=== PATIENT | male | born 1975 | race Two or more races ===

== ENCOUNTER 2018-09-13 17:48 | Inpatient (IN) | payer SELFPAY ==
[~2018-09-13] VITALS: Ht 172.7 cm; Wt 69.8 kg
[2018-09-13] MEDS ORDERED: InsuLIN REG 1unit/0.01ml Soln (100units/ml) SC ONE (19:15)
[2018-09-13] MEDS ORDERED: SODIUM CHLORIDE 0.9% 1,000 ML IV ONE (19:45)
[2018-09-13 20:27] LABS: Basophils # (auto) 0 uL; Basophils % (auto) 0.4 % (0.0-2.0); Eosinophils # (auto) 0 uL; Eosinophils % (auto) 0.6 % (0.0-7.0); Hematocrit 39.1 % (41.0-53.0); Hemoglobin 13.5 g/dL (13.5-17.5); Lymphocytes # (auto) 2.1 uL; Lymphocytes % (auto) 34.2 % (10.0-50.0); Mean Corpuscular Hemoglobin 30.7 pg (28.0-32.0); Mean Corpuscular Hgb Conc. 34.6 g/dL (32.0-36.0); Mean Corpuscular Volume 88.9 fL (80.0-100.0); Monocytes # (auto) 0.7 uL; Monocytes % (auto) 11.8 % (0.0-12.0); Neutrophils # (auto) 3.2 uL; Platelet Count (auto) 303 10^3/uL (140-450); Red Cell Distribution Width 12.7 % (11.8-14.3)
[2018-09-13 20:44] LABS: INR 0.95 (0.9-1.15); Partial Thromboplastin Time 30.9 sec (23.64-32.05)
[2018-09-13 20:58] LABS: Albumin 3.2 g/dL (3.4-5.0); BUN/Creatinine Ratio 12.6; Calcium 7.9 mg/dL (8.5-10.1); Potassium 3.4 mmol/L (3.5-5.1)
[2018-09-13 21:01] LABS: Bilirubin, Total 0.7 mg/dL (0.2-1.0); Total Protein 6.9 g/dL (6.4-8.2)
[2018-09-13 21:18] LABS: CRP High Sensitivity 4.96 mg/dL (< 0.3)
[2018-09-13] MEDS ORDERED: POTASSIUM CHL 20 Meq TABLET PO ONE (22:00)
[2018-09-13] MEDS ORDERED: ACETAMINOPHEN 325 MG TAB PO PRN (22:00)
[2018-09-13] MEDS ORDERED: cloNIDine HCL 0.1 MG TAB PO PRN (22:00)
[2018-09-13] MEDS ORDERED: DEXTROSE (50%) 50ML SYRG IV PRN (22:00)
[2018-09-13] MEDS ORDERED: ONDANSETRON HCL 4 MG/2 ML VIAL IV PRN (22:00)
[2018-09-13] MEDS ORDERED: cefTRIAXone 1GM/50ML D5W 50 ML IV ONE (22:00)
[2018-09-13 23:15] VITALS: BP 133/80
--- NOTE | 2018-09-13 23:15 | NUR ---
MS admit from [facility] admitted to MS floor. Patient oriented to Penny Gregory, primary RN, unit, room, bed, and unit policies regarding patient care and visiting hours. Patient weighed by bed scale and encouraged to call if they need something. All questions and concerns addressed, patient verbalized understanding. Patient is awake and alert x4, ambulatory independent. Patient reports left foot pain, wound to left great toe noted. Patient reports noticing wound 6 weeks ago with worsening pain starting yesterday. Patient states he is homeless and does not have a PCP or take any prescription medications.
[2018-09-14] MEDS: METOPROLOL TARTRATE 25 MG TAB PO SCH ×3 (00:06→21:40)
[2018-09-14] MEDS: FAMOTIDINE 20 MG TAB PO SCH ×3 (00:08→21:38)
[2018-09-14] MEDS: HYDROcodone-ACET 5/325MG TAB PO PRN ×3 (00:08→20:29)
[2018-09-14] MEDS: ACCU-CHEK COMFORT CURVE STRIP VI SCH ×6 (00:09→20:50)
[2018-09-14] MEDS: CLINDAMYCIN 600MG IV 50 ML IV SCH ×4 (00:09→21:38)
--- NOTE | 2018-09-14 00:40 | NUR ---
WOUND CARE PHOTOS TAKEN AT THIS TIME PATIENT WITH WOUND TO LEFT GREAT TOE, PURULENT DRAINAGE NOTED, NO ODOR. CLEANSED WOUND WITH WOUND CLEANSER, PATTED DRY WITH STERILE GAUZE. OPTIFOAM DRESSING PLACED ON LEFT GREAT TOE. PATIENT TOLERATED WELL. WOUND CARE ORDER PLACED AND FORM PLACED IN WOUND CARE BOX.
[2018-09-14] MEDS: InsuLIN REG 1unit/0.01ml Soln (100units/ml) SC SCH ×6 (04:12→20:49)
[2018-09-14 05:39] VITALS: BP 117/69
[2018-09-14 06:15] LABS: Basophils # (auto) 0 uL; Basophils % (auto) 0.5 % (0.0-2.0); Eosinophils # (auto) 0.1 uL; Eosinophils % (auto) 1.7 % (0.0-7.0); Hemoglobin 13.1 g/dL (13.5-17.5); Lymphocytes # (auto) 2.6 uL; Lymphocytes % (auto) 42.1 % (10.0-50.0); Mean Corpuscular Hemoglobin 30.7 pg (28.0-32.0); Mean Corpuscular Hgb Conc. 34.4 g/dL (32.0-36.0); Mean Corpuscular Volume 89.1 fL (80.0-100.0); Monocytes # (auto) 0.6 uL; Neutrophils # (auto) 2.8 uL; Neutrophils % (auto) 45.7 % (37.0-80.0); Platelet Count (auto) 270 10^3/uL (140-450); Red Blood Cells 4.27 10^6/uL (4.5-5.90); Red Cell Distribution Width 12.5 % (11.8-14.3); White Blood Cell 6.2 10^3/uL (4.4-10.8)
[2018-09-14 06:23] LABS: BUN/Creatinine Ratio 14.7; Potassium 3.8 mmol/L (3.5-5.1)
--- NOTE | 2018-09-14 08:00 | NUR ---
Patient in bed, asleep, no acute distress noted.
[2018-09-14 09:00] VITALS: BP 126/76
[2018-09-14] MEDS: cefTRIAXone 1GM/50ML D5W 50 ML IV SCH (09:06)
--- NOTE | 2018-09-14 11:00 | NUR ---
WOUND CARE NOTE: IN TO SEE PATIENT AT THIS TIME PER WOUND CARE CONSULT REQUEST. PATIENT NOTED TO HAVE WOUND TO LEFT # 1 TOE UPON ADMIT. WOUND PHOTO TAKEN AT THAT TIME BY BEDSIDE NURSE FOR REFERENCE. PATIENT ADMITTED TO [facility] WITH DIAGNOSIS OF LEFT FOOT OSTEOMYELITIS. PATIENT NOTED TO HAVE A DFU ULCER MEASURING 2 X 0.7 X 1 CM TO LEFT # 1 TOE. WOUND IS DRAINING LIGHT AMOUNT OF PURULENT DRAINAGE. ENTIRE TOE IS DARK RED. PATIENT HAS NEUROPATHY TO HIS BILATERAL FEET, NO PAIN NOTED UPON PALPATION. NEW WOUND PHOTO TAKEN AT THIS TIME FOR REFERENCE. WOUND CULTURE WAS ALREADY TAKEN, SENT TO LAB FOR PROCESSING, PENDING RESULTS. PODIATRY CONSULT IS PENDING. CLEANSED WOUND WITH WOUND CLEANSER, PATTED DRY WITH STERILE GAUZE. APPLIED SILVASORB HYDROGEL INTO OPEN WOUND. COVERED WITH OPTIFOAM GENTLE AG. WRAPPED LEFT FOOT WITH KERLIX, SECURED WITH TAPE/STOCKINETTE. RECOMMEND: ELEVATION OF LEFT FOOT UP ONTO PILLOWS, DAILY/PRN DRESSING CHANGE TO LEFT FOOT WOUND, DIETARY CONSULT, SKIN/WOUND CARE PLAN, CONTINUED MONITORING BY WOUND CARE TEAM. Addendum: 09/14/18 at 1715 by Sandy Duran RN Amended: Links added.
[2018-09-14 13:00] VITALS: BP 122/78
--- NOTE | 2018-09-14 13:22 | NUR ---
Dr. Penn at bedside. Patient said he uses Meth, the last time was four days ago. MD made aware Dr. White will not see the patient for Podiatry Consult. Dr. Penn ordered to put another Podiatry Consult with Dr. Lockhart or Dr. Lockett.
--- NOTE | 2018-09-14 16:00 | NUR ---
Patient is ambulatory, limping noted on the left foot noted, covered with wound dressing with stockinette on.
--- NOTE | 2018-09-14 16:40 | NUR ---
Urine specimen sent to Laboratory.
[2018-09-14 17:00] VITALS: BP 129/78
[2018-09-14 17:33] LABS: Alcohol, Urine < 3.0 mg/dL (0-5); Amphetamine Screen, Urine POSITIVE (NEGATIVE); Barbiturate Scree,Urine NEGATIVE (NEGATIVE); Benzodiazephine Screen, Urine NEGATIVE (NEGATIVE); Cannabinoid Screen, Urine POSITIVE (NEGATIVE); Cocaine Screen, Urine NEGATIVE (NEGATIVE); Opiate Scree,Urine NEGATIVE (NEGATIVE); Phencyclidine Screen, Urine NEGATIVE (NEGATIVE)
--- NOTE | 2018-09-14 19:00 | NUR ---
Opening Shift Note Report received from day shift RN. Assumed care of patient. Patient sitting in bed awake and alert x4. No S/S of distress/SOB noted. Patient states having sharp pain to left foot and leg 9/10. Will medicate as ordered. Dressing to left foot clean, dry, and intact. Instructed on POC and to call for assist PRN, will continue to monitor for changes Q1hr and PRN.
[2018-09-14 22:00] VITALS: BP 136/77
[2018-09-15] MEDS: ACCU-CHEK COMFORT CURVE STRIP VI SCH ×6 (00:04→20:00)
[2018-09-15] MEDS: InsuLIN REG 1unit/0.01ml Soln (100units/ml) SC SCH ×6 (04:00→20:56)
[2018-09-15] MEDS: CLINDAMYCIN 600MG IV 50 ML IV SCH ×3 (05:10→21:00)
[2018-09-15 05:37] VITALS: BP 114/80
[2018-09-15 06:20] LABS: Calcium 8.8 mg/dL (8.5-10.1); Potassium 4.2 mmol/L (3.5-5.1)
[2018-09-15 06:26] LABS: BUN/Creatinine Ratio 15.7
[2018-09-15 08:10] VITALS: BP 136/87
[2018-09-15] MEDS: cefTRIAXone 1GM/50ML D5W 50 ML IV SCH (08:37)
[2018-09-15] MEDS: HYDROcodone-ACET 5/325MG TAB PO PRN ×3 (08:49→21:00)
--- NOTE | 2018-09-15 08:49 | NUR ---
Patient stated his left foot hurts, pain level at 7/10 at this time. [place] 5/325 PO given as ordered.
--- NOTE | 2018-09-15 10:07 | NUR ---
Dr. Penn came over to see the patient. Patient has pending Podiatry Consult.
--- NOTE | 2018-09-15 10:09 | NUR ---
Called MRI. Phone on voicemail. Left a message.
[2018-09-15] MEDS: FAMOTIDINE 20 MG TAB PO SCH ×2 (10:35→20:59)
[2018-09-15] MEDS: METOPROLOL TARTRATE 25 MG TAB PO SCH (10:35)
--- NOTE | 2018-09-15 10:38 | NUR ---
assessment Patient is a 43 year old male who is homeless and has no insurance. Patient has been assessed by John Paul Haney of [facility] and patients medi-cecile is pending. Patient is homeless in [place]. Patient has been admitted for osteomyelitis. Patient is open to homeless [facility] in [place]. Patients post discharge needs to be determined prior to discharge. Addendum: 09/15/18 at 1641 by Ledy BURNETTE Amended: Links added.
[2018-09-15] MEDS ORDERED: hydrALAZINE HCL 20 MG/ML VL IV PRN (11:15)
--- NOTE | 2018-09-15 12:03 | NUR ---
embryology teacher came over. Patient requested if he can finish eating lunch first. embryology teacher to come back.
[2018-09-15 12:43] VITALS: BP 128/81
--- NOTE | 2018-09-15 12:43 | NUR ---
NUTRITION CONSULT/ASSESSMENT NOTES Please refer to link notes of nutrition screen form filed under the intervention section of the plan of care for further details. Est. Needs: 1650 kcal to 2000 kcal (25-30 kcal/kgBW), 67 gms to 88 gms pro (1.0-1.3 gms/kgBW for wound healing). Will continue to monitor pertinent labs and reassess nutrient need prn Thank you for this consult. Addendum: 09/15/18 at [address] Amended: Links added.
--- NOTE | 2018-09-15 12:43 | NUR ---
Called Farheen Wagner to see if we can get KARAN for a assistant professor of psychology to see pt , had to leave message
--- NOTE | 2018-09-15 12:53 | NUR ---
Called [place] that patient is ready for MRI. tobacco prizer is coming over as per [place].
--- NOTE | 2018-09-15 12:54 | NUR ---
Received referral to see pt. Pt is homeless and is unable to get to [facility], prescriptions and no transportation. Gave pt resources from the [facility]. Patient is willing to go to homeless fpc on dc. Will call fpc on [place] to see bed availability. Patient has been offered clothes and will be provided a sack lunch on dc. Patient signed homeless waiver and it has been placed in chart.
--- NOTE | 2018-09-15 12:54 | NUR ---
Informed the patient cooperage shop supervisor is coming over to pick him up for MRI.
--- NOTE | 2018-09-15 13:45 | NUR ---
Per Dr. Pavel Fernandez to see pt either today or tomorrow
--- NOTE | 2018-09-15 15:07 | NUR ---
Patient stated his left foot hurts. [place] 5/325 PO given for pain as ordered.
[2018-09-15 16:46] VITALS: BP 149/86
--- NOTE | 2018-09-15 19:30 | NUR ---
Opening Shift Note Assumed care of patient, awake and alert. No S/S of distress/SOB. Updated on POC and to call for assist PRN, patient verbalized understanding, call light within reach, will continue to monitor for changes Q1hr and PRN.
[2018-09-15] MEDS: ASCORBIC ACID 500 MG TAB PO SCH (20:59)
[2018-09-15 21:42] VITALS: BP 120/79
[2018-09-16 04:00] VITALS: BP 116/67
[2018-09-16] MEDS: ACCU-CHEK COMFORT CURVE STRIP VI SCH ×6 (04:00→22:26)
[2018-09-16] MEDS: InsuLIN REG 1unit/0.01ml Soln (100units/ml) SC SCH ×6 (04:00→22:30)
[2018-09-16] MEDS: CLINDAMYCIN 600MG IV 50 ML IV SCH ×3 (05:46→22:26)
[2018-09-16] MEDS: cefTRIAXone 1GM/50ML D5W 50 ML IV SCH (08:40)
[2018-09-16] MEDS: HYDROcodone-ACET 5/325MG TAB PO PRN ×2 (08:41→17:55)
[2018-09-16] MEDS: ASCORBIC ACID 500 MG TAB PO SCH ×2 (09:24→22:26)
[2018-09-16] MEDS: MULTIPLE VITAMINS W/ MINERALS TAB PO SCH (09:24)
[2018-09-16] MEDS: FAMOTIDINE 20 MG TAB PO SCH ×2 (09:25→22:26)
[2018-09-16] MEDS: LISINOPRIL 20 MG TAB PO SCH (09:25)
[2018-09-16 09:47] VITALS: BP 115/72
--- NOTE | 2018-09-16 10:49 | NUR ---
ASKED BUTCHER APPRENTICE TO RECALL PODIATRY CONSULT. ASSISTANT PROFESSOR OF PSYCHOLOGY REPORTS SHE WILL CALL IN, WILL CONTINUE TO MONITOR.
--- NOTE | 2018-09-16 12:30 | NUR ---
DOOR ASSEMBLER REPORTS DR ROBLES'S OFFICE IS AT LUNCH AND SHE WILL RECALL.
[2018-09-16 12:43] VITALS: BP 117/79
[2018-09-16] MEDS ORDERED: DEXTROSE (50%) 50ML SYRG IV PRN (12:45)
--- NOTE | 2018-09-16 18:00 | NUR ---
PT REPORTED HIS IV WAS HURTING. ASSESSED IV SITE, NO ERYTHEMA NOTED, BUT SWELLING NOTED. IV DC'D, PRESSURE DRESSING APPLIED. NEW IV RFA 22 G INSERTED USING STERILE TECHNIQUE. PT TOLERATED PROCEDURE WELL, WILL CONTINUE TO MONITOR.
--- NOTE | 2018-09-16 20:30 | NUR ---
TALKED TO DR ORTA NEW ORDERS FOR WEDNESDAY
[2018-09-16 22:03] VITALS: BP 177/113
[2018-09-16 22:08] VITALS: BP 131/74
[2018-09-16] MEDS: TEMAZEPAM 15 MG CAP PO PRN (22:27)
--- NOTE | 2018-09-17 00:41 | NUR ---
lambert report to heaven clay
--- NOTE | 2018-09-17 00:47 | NUR ---
Assumed care of patient. Patient laying in bed sleeping no s/s of distress or SOB noted.
[2018-09-17 05:07] VITALS: BP 105/66
[2018-09-17] MEDS: CLINDAMYCIN 600MG IV 50 ML IV SCH ×3 (05:30→21:26)
[2018-09-17] MEDS: InsuLIN REG 1unit/0.01ml Soln (100units/ml) SC SCH ×4 (06:32→21:28)
[2018-09-17] MEDS: ACCU-CHEK COMFORT CURVE STRIP VI SCH ×4 (06:33→21:26)
--- NOTE | 2018-09-17 07:36 | NUR ---
CLOSING NOTE ENDORSED CARE TO DAY SHIFT RN. PATIENT SITTING IN BED NO S/S OF DISTRESS OR SOB NOTED
--- NOTE | 2018-09-17 08:30 | NUR ---
PT AMBULATING IN HALLWAYS, EFFORTLESS BREATHING ON ROOM AIR. STEADY GAIT NOTED.
[2018-09-17 08:41] VITALS: BP 116/80
[2018-09-17] MEDS: ASCORBIC ACID 500 MG TAB PO SCH ×2 (10:11→21:26)
[2018-09-17] MEDS: MULTIPLE VITAMINS W/ MINERALS TAB PO SCH (10:11)
[2018-09-17] MEDS: HYDROcodone-ACET 5/325MG TAB PO PRN ×3 (10:11→21:27)
[2018-09-17] MEDS: FAMOTIDINE 20 MG TAB PO SCH ×2 (10:11→21:26)
[2018-09-17] MEDS: LISINOPRIL 20 MG TAB PO SCH (10:12)
[2018-09-17 13:00] VITALS: BP 135/89
[2018-09-17] MEDS ORDERED: LACTULOSE 20Gm/30ML SOLN PO PRN (15:15)
[2018-09-17 17:00] VITALS: BP 99/67
[2018-09-17] MEDS: DOCUSATE SOD 100 MG CAP PO SCH (21:26)
[2018-09-17 21:38] VITALS: BP 118/73
[2018-09-18] MEDS: TEMAZEPAM 15 MG CAP PO PRN ×2 (00:08→20:47)
--- NOTE | 2018-09-18 04:37 | NUR ---
RECEIVED REPORT Received report from Yamilka BLOOM
--- NOTE | 2018-09-18 04:37 | NUR ---
GAVE REPORT TO KIKO BLOOM
[2018-09-18 05:08] VITALS: BP_SYST 100; BP_SYST 154; BP_DIAS 62; BP_DIAS 90
[2018-09-18] MEDS: CLINDAMYCIN 600MG IV 50 ML IV SCH ×3 (05:47→20:47)
[2018-09-18] MEDS: ACCU-CHEK COMFORT CURVE STRIP VI SCH ×4 (06:04→21:32)
[2018-09-18] MEDS: InsuLIN REG 1unit/0.01ml Soln (100units/ml) SC SCH ×4 (06:04→21:33)
--- NOTE | 2018-09-18 07:48 | NUR ---
OPENING SHIFT NOTE ASSUMED CARE OF PATIENT. PATIENT AWAKE AND ALERT SITTING UP IN CHAIR AT BEDSIDE. NO S/S OF DISTRESS OR SOB NOTED. REVIEWED POC AND INSTRUCTED TO CALL FOR ASSIST NEEDED. CONTINUING TO MONITOR.
[2018-09-18 09:00] VITALS: BP_SYST 110; BP_SYST 114; BP_DIAS 68; BP_DIAS 69
[2018-09-18] MEDS: ASCORBIC ACID 500 MG TAB PO SCH ×2 (09:36→20:47)
[2018-09-18] MEDS: DOCUSATE SOD 100 MG CAP PO SCH ×2 (09:36→20:46)
[2018-09-18] MEDS: MULTIPLE VITAMINS W/ MINERALS TAB PO SCH (09:36)
[2018-09-18] MEDS: FAMOTIDINE 20 MG TAB PO SCH ×2 (09:37→20:46)
[2018-09-18] MEDS: LISINOPRIL 20 MG TAB PO SCH (09:37)
[2018-09-18] MEDS: HYDROcodone-ACET 5/325MG TAB PO PRN ×2 (09:41→15:00)
--- NOTE | 2018-09-18 11:28 | NUR ---
Nutrition Follow-up Notes Wt.: 71.1 kg Pt was sleeping with no family by bedside. per records pt with DFU to have sx tomorrow. pt with no distress noted per nursing. pt is currently on CCHO 60 gm/meal diet with adequate PO of > 75% x6 per RN doc Est. Needs: 1650 kcal to 2000 kcal (25-30 kcal/kgBW), 67 gms to 88 gms pro (1.0-1.3 gms/kgBW for wound healing). Will continue to monitor pertinent labs and reassess nutrient need prn Labs: No new labs today 09/15: GLU 116 H, rest lab wnl Skin: Matthew scale 17, mod risk, DFU per RN doc. refer to WC notes for details GI: Pt had 1 BM today per senior analyst developer. PES: Altered nutrition related lab values r/t current/chronic medical condition aeb hyperglycemia, elev. HbA1c, and mild hypoalbuminemia Will continue to monitor PO intake, skin status, pertinent labs and weight trend. F/u in 3-5 days. Rec.: 1.) If Albumin level continues trending down, consider Prostat 1 pkt BID. 2.) Consider daily MVI with minerals and Asc acid 500 mgs BID. 3.) Continue close supervision meals 4.) If pt's PO intake inadequate (<75%), consider Glucerna Shakes 1 carton BID 5.) Refer to CDE/RD for further nutrition education and weight monitoring upon discharged. 6.) Continue current plan of care
[2018-09-18 12:28] VITALS: BP 116/73
--- NOTE | 2018-09-18 15:20 | NUR ---
CONSENTS SPOKE WITH PATIENT REGARDING CONSENTS FOR PROCEDURE. AT THIS TIME PATIENT STATES HE HAS QUESTIONS AND IS UNSURE ABOUT ANESTHESIA. WILL NOT HAVE PATIENT SIGN CONSENTS AT THIS TIME.
[2018-09-18 17:00] VITALS: BP 121/72
--- NOTE | 2018-09-18 19:30 | NUR ---
Opening Shift Note Assumed care of patient, awake and alert. No S/S of distress/SOB or pain. Insructed on POC and to callfor assist PRN, will continue to monitor for changes Q1hr and PRN. Fall and safety precautions in place. Call light within reach.
--- NOTE | 2018-09-18 20:00 | NUR ---
CONSENTS Spoke with patient regarding consents for scheduled procedure tomorrow 09/19/18. Patient states he still has questions for MD regarding procedure. Consents not signed, left in chart. Will inform day shift RN in morning. Will continue to monitor
[2018-09-18 21:38] VITALS: BP 120/83
--- NOTE | 2018-09-19 | NUR ---
NPO Patient was informed that he needs to be NPO for scheduled procedure today 09/19/18. Patient verbalized understanding and agreement. Bedside table cleared of food and drink. Will continue to monitor
[2018-09-19 05:09] VITALS: BP_SYST 119; BP_SYST 178; BP_DIAS 101; BP_DIAS 77
[2018-09-19] MEDS: CLINDAMYCIN 600MG IV 50 ML IV SCH ×3 (05:19→21:04)
[2018-09-19] MEDS: HYDROcodone-ACET 5/325MG TAB PO PRN ×2 (05:20→21:05)
[2018-09-19 05:38] LABS: Basophils # (auto) 0 uL; Basophils % (auto) 0.5 % (0.0-2.0); Eosinophils # (auto) 0.1 uL; Eosinophils % (auto) 1.3 % (0.0-7.0); Hematocrit 43.1 % (41.0-53.0); Hemoglobin 14.9 g/dL (13.5-17.5); Lymphocytes # (auto) 2.9 uL; Lymphocytes % (auto) 47.3 % (10.0-50.0); Mean Corpuscular Hemoglobin 30.8 pg (28.0-32.0); Mean Corpuscular Hgb Conc. 34.5 g/dL (32.0-36.0); Mean Corpuscular Volume 89.3 fL (80.0-100.0); Monocytes # (auto) 0.4 uL; Monocytes % (auto) 6.6 % (0.0-12.0); Neutrophils # (auto) 2.7 uL; Neutrophils % (auto) 44.3 % (37.0-80.0); Nucleated Red Blood Cells % 0.1 %; Platelet Count (auto) 413 10^3/uL (140-450); Red Blood Cells 4.83 10^6/uL (4.5-5.90); Red Cell Distribution Width 12.5 % (11.8-14.3)
[2018-09-19 05:50] LABS: INR 0.96 (0.9-1.15); Partial Thromboplastin Time 28.5 sec (23.64-32.05)
[2018-09-19 05:59] LABS: Potassium 3.9 mmol/L (3.5-5.1)
--- NOTE | 2018-09-19 06:00 | NUR ---
CHG Patient given CHG wipes and instructed on how to wipe himself with them. Patient verbalized understanding and agreement. Patient was given clean gown and clean socks to wear after CHG bath. Patient entered restroom and wiped himself. All linens changed at this time and patient was assisted back to bed after CHG bath. Patient tolerated CHG bath well. Will continue to monitor
[2018-09-19 06:05] LABS: BUN/Creatinine Ratio 20.6; Bilirubin, Total 0.2 mg/dL (0.2-1.0); Calcium 8.8 mg/dL (8.5-10.1); Total Protein 6.5 g/dL (6.4-8.2)
[2018-09-19] MEDS: InsuLIN REG 1unit/0.01ml Soln (100units/ml) SC SCH ×4 (06:32→21:17)
[2018-09-19] MEDS: ACCU-CHEK COMFORT CURVE STRIP VI SCH ×4 (06:32→21:17)
--- NOTE | 2018-09-19 07:45 | NUR ---
OPENING SHIFT NOTE ASSUMED CARE OF PATIENT. PATIENT RESTING COMFORTABLY IN BED WITH EYES CLOSED. NO S/S OF DISTRESS OR SOB NOTED. BED IN LOWEST LOCKED POSITION, CALL LIGHT WITHIN REACH. WILL CONTINUE TO MONITOR.
[2018-09-19 08:59] VITALS: BP 104/65
[2018-09-19] MEDS: DOCUSATE SOD 100 MG CAP PO SCH ×2 (09:49→21:04)
[2018-09-19] MEDS: FAMOTIDINE 20 MG TAB PO SCH ×2 (09:49→21:04)
[2018-09-19] MEDS: MULTIPLE VITAMINS W/ MINERALS TAB PO SCH (09:49)
[2018-09-19] MEDS: ASCORBIC ACID 500 MG TAB PO SCH ×2 (09:49→21:04)
[2018-09-19] MEDS: LISINOPRIL 20 MG TAB PO SCH (09:50)
--- NOTE | 2018-09-19 12:45 | NUR ---
OFF UNIT PATIENT OFF UNIT TO OR AT THIS TIME.
[2018-09-19] MEDS ORDERED: ceFAZolin 1GM/50ML 50 ML IV ONE (13:11)
[2018-09-19] MEDS ORDERED: MIDAZOLAM HCL 1MG/1ML-2 ML VIAL ONE (13:34)
[2018-09-19] MEDS ORDERED: fentaNYL CITRATE 100 MCG/2 ML VL ONE ×2 (13:35→14:27)
[2018-09-19] MEDS ORDERED: BUPIVACAINE HCL 50 ML ONE (13:36)
[2018-09-19] MEDS ORDERED: LIDOCAINE 1% HCL (LOCAL ANESTH.) INJ 20ML MDV ONE (13:36)
[2018-09-19 16:37] VITALS: BP 120/70
--- NOTE | 2018-09-19 16:45 | NUR ---
PATIENT RETURNED TO UNIT PATIENT RETURNED TO UNIT FROM OR. PATIENT AWAKE AND ALERT SHOWING NO S/S OF DISTRESS OR SOB NOTED. PATIENT DENIES PAIN AT THIS TIME. DRESSING TO LEFT FOOT IS CLEAN DRY AND INTACT. WILL CONTINUE TO MONITOR.
--- NOTE | 2018-09-19 18:40 | NUR ---
END OF SHIFT NOTE PATIENT RESTING COMFORTABLY IN BED AT THIS TIME. NO S/S OF DISTRESS OR SOB NOTED. BED IN LOWEST LOCKED POSITION, CALL LIGHT WITHIN REACH WILL ENDORSE CARE TO NOC RN.
--- NOTE | 2018-09-19 19:30 | NUR ---
Opening Shift Note Assumed care of patient, awake and alert. No S/S of distress/SOB or pain. Insructed on POC and to callfor assist PRN, will continue to monitor for changes Q1hr and PRN. Fall and safety precautions in place. Call light within reach. Surgical dressing to left foot clean, dry, and intact. Patient states pain level is 7/10, is tolerable, and refusing pain medication at this time.
[2018-09-19 22:00] VITALS: BP 143/77
--- NOTE | 2018-09-19 23:30 | NUR ---
BLOOD SUGAR Patient stated he was feeling "shaky." Blood sugar checked, result was 64. Patient given snacks and juice to bring blood sugar up. Will recheck approximately 1 hour.
--- NOTE | 2018-09-20 00:30 | NUR ---
BLOOD SUGAR Blood sugar rechecked, result 196. Patient denies symptoms of hypoglycemia. Will continue to monitor
[2018-09-20] MEDS: HYDROcodone-ACET 5/325MG TAB PO PRN ×4 (02:44→22:33)
[2018-09-20 05:00] VITALS: BP 117/74
[2018-09-20] MEDS: CLINDAMYCIN 600MG IV 50 ML IV SCH (05:30)
[2018-09-20] MEDS: InsuLIN REG 1unit/0.01ml Soln (100units/ml) SC SCH ×4 (05:42→22:00)
[2018-09-20] MEDS: ACCU-CHEK COMFORT CURVE STRIP VI SCH ×4 (05:42→22:00)
[2018-09-20 06:04] LABS: Basophils # (auto) 0 uL; Basophils % (auto) 0.4 % (0.0-2.0); Eosinophils # (auto) 0.1 uL; Eosinophils % (auto) 0.9 % (0.0-7.0); Hematocrit 40.2 % (41.0-53.0); Hemoglobin 13.9 g/dL (13.5-17.5); Lymphocytes # (auto) 2.5 uL; Lymphocytes % (auto) 37.5 % (10.0-50.0); Mean Corpuscular Hemoglobin 31.1 pg (28.0-32.0); Mean Corpuscular Hgb Conc. 34.7 g/dL (32.0-36.0); Mean Corpuscular Volume 89.6 fL (80.0-100.0); Monocytes # (auto) 0.4 uL; Monocytes % (auto) 5.4 % (0.0-12.0); Neutrophils # (auto) 3.7 uL; Neutrophils % (auto) 55.8 % (37.0-80.0); Platelet Count (auto) 400 10^3/uL (140-450); Red Blood Cells 4.48 10^6/uL (4.5-5.90); Red Cell Distribution Width 12.8 % (11.8-14.3); White Blood Cell 6.7 10^3/uL (4.4-10.8)
[2018-09-20 06:14] LABS: Potassium 3.9 mmol/L (3.5-5.1)
[2018-09-20 06:18] LABS: BUN/Creatinine Ratio 27.3; Calcium 8.4 mg/dL (8.5-10.1); Magnesium 1.8 mg/dL (1.6-2.6)
--- NOTE | 2018-09-20 07:35 | NUR ---
OPENING SHIFT NOTE ASSUMED CARE OF PATIENT. PATIENT RESTING COMFORTABLY IN BED WITH EYES CLOSED. NO S/S OF DISTRESS OR SOB NOTED. BED IN LOWEST LOCKED POSITION, CALL LIGHT WITHIN REACH. CONTINUING TO MONITOR.
[2018-09-20] MEDS: ASCORBIC ACID 500 MG TAB PO SCH ×2 (08:51→22:30)
[2018-09-20] MEDS: DOCUSATE SOD 100 MG CAP PO SCH ×2 (08:51→22:30)
[2018-09-20] MEDS: FAMOTIDINE 20 MG TAB PO SCH ×2 (08:51→22:30)
[2018-09-20] MEDS: MULTIPLE VITAMINS W/ MINERALS TAB PO SCH (08:51)
[2018-09-20] MEDS: LISINOPRIL 20 MG TAB PO SCH (08:52)
[2018-09-20 09:00] VITALS: BP 123/76
[2018-09-20] MEDS ORDERED: MAGNESIUM SULFATE 1GM/100ML 100 ML IV ONE (11:45)
[2018-09-20 11:48] VITALS: BP 102/67
[2018-09-20] MEDS ORDERED: LEVOFLOXACIN 250 MG TAB PO ONE (12:00)
--- NOTE | 2018-09-20 13:30 | NUR ---
AT BEDSIDE DR MOON AT BEDSIDE, POSSIBLE D/C TOMORROW. 1WK FOLLOW UP WITH MARIVEL. CONTINUING TO MONITOR.
--- NOTE | 2018-09-20 14:22 | NUR ---
Received referral to find a placement for pt. Pt has a wound on his left foot that will require healing. The wound care will be provided by his personal physician. Called [facility] and at this time pt needs to call to be interviewed. Pt has to qualify for acceptance see to go to this placement. Gave pt the phone number to [facility] for phone interview. Pt has to meet the criteria for acceptance. Apparently there is also a waiting list. Pt would like to go back to [place] where his friends and possessions are. There are no other placements in [place].
[2018-09-20] MEDS: CLINDAMYCIN HCL 150 MG CAP PO SCH ×2 (15:27→22:30)
[2018-09-20 16:10] VITALS: BP 117/73
[2018-09-20] MEDS: metFORMIN HYDROCHLORIDE 500 MG TAB PO SCH (17:06)
--- NOTE | 2018-09-20 19:02 | NUR ---
END OF SHIFT NOTE PATIENT RESTING COMFORTABLY IN BED AT THIS TIME. NO S/S OF DISTRESS OR SOB NOTED. BED IN LOWEST LOCKED POSITION, CALL LIGHT WITHIN REACH. WILL ENDORSE CARE TO NOC RN.
--- NOTE | 2018-09-20 19:15 | NUR ---
Opening Shift Note Assumed care of patient, awake and alert. No S/S of distress/SOB or pain. Instructed on POC and to call for assist PRN. Pt agrees wtih POC. This RN will continue to monitor for changes Q1hr and PRN. Pt elevating L foot on two pillows. Nurse call light attached to L HOB rail. Bed low and in semi-Albert's position, positioned low.
[2018-09-20 21:00] VITALS: BP 115/68
[2018-09-21] MEDS: TEMAZEPAM 15 MG CAP PO PRN (01:36)
[2018-09-21 04:30] VITALS: BP 117/70
[2018-09-21] MEDS: metFORMIN HYDROCHLORIDE 500 MG TAB PO SCH ×2 (06:12→18:20)
[2018-09-21] MEDS: CLINDAMYCIN HCL 150 MG CAP PO SCH ×2 (06:12→13:59)
[2018-09-21] MEDS: ACCU-CHEK COMFORT CURVE STRIP VI SCH ×3 (06:13→18:20)
[2018-09-21] MEDS: InsuLIN REG 1unit/0.01ml Soln (100units/ml) SC SCH ×3 (06:14→18:20)
[2018-09-21] MEDS: HYDROcodone-ACET 5/325MG TAB PO PRN ×2 (06:15→12:26)
[2018-09-21 09:00] VITALS: BP 131/82
[2018-09-21] MEDS: ASCORBIC ACID 500 MG TAB PO SCH (09:48)
[2018-09-21] MEDS: FAMOTIDINE 20 MG TAB PO SCH (09:48)
[2018-09-21] MEDS: LISINOPRIL 20 MG TAB PO SCH (09:48)
[2018-09-21] MEDS: DOCUSATE SOD 100 MG CAP PO SCH (09:48)
[2018-09-21] MEDS: MULTIPLE VITAMINS W/ MINERALS TAB PO SCH (09:48)
[2018-09-21] MEDS ORDERED: LEVOFLOXACIN 250 MG TAB PO SCH (10:00)
--- NOTE | 2018-09-21 10:11 | NUR ---
Hospitalist at bedside Spoke to Dr Penn at bedside and notified of patient's status. Per Doctor Penn, patient will be d/c'd today and new prescription will be obtained and given to patient. Per patient, he is homeless and requested "help with placement". Resources provided to patient by Senia clinical social worker and patient states he will call, per Senia she will follow up with patient regarding homeless care home. Awaiting d/c order at this time. Will cont care
[2018-09-21] MEDS ORDERED: CLIN1CAP4 PO (10:43)
[2018-09-21] MEDS ORDERED: METF-372 PO (10:43)
[2018-09-21] MEDS ORDERED: SACC250C PO (10:43)
[2018-09-21] MEDS ORDERED: LISI-646 PO (10:43)
[2018-09-21] MEDS ORDERED: LEVO750T2 PO (10:43)
--- NOTE | 2018-09-21 11:50 | NUR ---
WOUND CARE NOTE: Weekly reevaluation by wound care team. Wound care team has been following due to left foot diabetic ulcer. Patient is S/P amputation of left hallux with Dr Lockett on 09/19/18. Patient has been specifically told by MD to not remove dressing until follow up with podiatry. Dressing is C/D/I. Plan is to discharge patient home, however patient is homeless and arrangements are being worked on by case management/social work supervisor. Wound care team to continue to follow until discharged.
--- NOTE | 2018-09-21 12:49 | NUR ---
Spoke to Sales And Service Change Leader Per Dr Zhao, patient to "keep dressing as is". No orders to change dressing at this time received. Dressing noted c/d/i at this time and patient to maintain dressing c/d/i until patient follows up with Sales And Service Change Leader and to wear post op shoe as instructed. Per Dr. Zhao patient to f/u with him at his office in 1-2 weeks and he (doctor) "will take care of it". Patient educated regarding f/u instructions and dressing care and he verbalized understanding. Will d/c as ordered
[2018-09-21 13:00] VITALS: BP 119/79
--- NOTE | 2018-09-21 15:20 | NUR ---
SPOKE WITH THE PATIENT AT BEDSIDE, ACCOMPAINIED BY KENNY HOGUE AND LYNNE, OFFERED THE PATIENT TO GO TO A HOMELESS HALF-WAY, BUT HE DECLINED, STATING HE WOULD RATHER GO BACK TO [place]. KENNY INFORMED THE PATIENT THAT HE WOULD HAVE A BED, MEALS, AND ROOF OVER HIS HEAD AT THE HOMELESS HALF-WAY BUT HE STILL DECLINED STATING THAT HE WOULD RATHER GO BACK TO [place].
--- NOTE | 2018-09-21 15:22 | NUR ---
Spoke to MD MD Penn aware of patient's status and pt refusal to go to homeless longterm and current situation. spoke to elastic yarn twister Ritika she will talk to patient at bedside with social welfare administrator. Will discharge patient as ordered
--- NOTE | 2018-09-21 16:00 | NUR ---
Regarding d/c I spoke to gas charger Joslyn regarding patient's situation, patient refuses homeless correction and states he wants to go back to [place]. Per Ritika gas charger she states she also spoke to SIMONE James and per protocol, patient cannot continue to remain hospitalized. As long as prescriptions are given to patient, patient is responsible for paying for prescriptions and going to a Pharmacy to supply them as we already attempted to get them fill by [facility] and patient states he cannot pay the amount due. strategy intern and social workers already spoke to patient and supplied him with resources for discharge. Will d/c patient as ordered, pt states he will go back to where he wishes to go out in [place]. Patient verbalized understanding.
--- NOTE | 2018-09-21 16:24 | NUR ---
Received referral for social services analyst to assist in locating alf for pt. Pt states he has no family in area. Pt frequents [place]. nursery worker called [facility], to ascertain whether they could provide motel vouchers for pt. They explained that they had no funding for that. [facility] stated the could help with clothes or food but that they did not have any alf. [phone]. [facility] in [place] stated that they had no male beds. [phone] They also require a interview prior to accepting pt. [phone]. [facility] [phone] had no beds. nursery worker called the [facility] and spoke with Brennen. Explained situation with pt. Brennen stated that they had a male bed and it was available. Discussed with pt that there was a bed at [facility]. Pt states its too far from [place]. Informed pt social media marketing manager would be back to speak with him and find out his decision. Returned to pt's room with Charge Nurse Ayo and Repairer [employer]ge[employer] jersey Villafana. Pt decided he did not want to go to the homeless alf and would rather return back to [place]. Provided Pt with Transportation resources. [facility] [phone] and [facility] [employer] [facility] [phone].
[2018-09-21 17:00] VITALS: BP 115/62
--- NOTE | 2018-09-21 18:46 | NUR ---
Discharge instructions given as ordered. Encourage to follow up with PMD as instructed, appointment made for Brewing Technician Doctor Pavel patient verbalized understanding and states he will follow up as ordered. All questions and concerns addressed. Patient has no insurance or PCP or Emergency Medical. Pt referred to [facility] Urgent care, also, given list of options and contact info to follow up such as [facility], [facility]. Provided patient with business card for [employer] of career center advisor adn encouraged him to call them. Prescription medications supplied by [facility] and delivered to patient's bedside and pt instructed on use, including s/e, contraindications. Patient verbalized understanding. Medication reconciliation form completed and copy given to patient. IV removed with catheter intact, pressure dressing applied. Patient refused homeless mcc. Resources provided to patient by social media assistant and [employer] provided as well by Issac helm. I called the [facility] and they states ETA 30 mins. Patient waiting in room in no acute distress or sob. Will endorse to oncoming rn
--- NOTE | 2018-09-21 18:55 | NUR ---
Patient care endorsed endorsed care to Samantha clay. Patient awaiting taxi for curing pickling packer to go back to [place] where patient wishes to go back to. No distress or sob noted at this time. Patient to leave with all personal belongings.
--- NOTE | 2018-09-21 19:15 | NUR ---
Pt taken downstairs via w/c to taxi by JORDI Martinez as pt discharged per report received by MERLE Cast for day shift. Addendum: 09/21/18 at 1936 by MARIE YEH RN This RN did not see pt as change of shift report continuing when pt escorted to taxi.
== END 2018-09-21 19:20 | disposition home or self-care (01) | DRG 617 ==
LOC: EDBD 17:48 → ER 17:58 → OVERFLOW 17:59 → WEST WING 23:12
PROVIDERS: ADMIT Nurse Practitioner; ATTEND Internal Medicine
PROC: 0Y6Q0Z0 Detachment at Left 1st Toe, Complete, Open Approach (ICD-10-PCS; principal; 2018-09-19 13:39)
DX: E11.69 Type 2 diabetes mellitus with other specified complication (principal); J98.11 Atelectasis; L03.116 Cellulitis of left lower limb; M86.172 Other acute osteomyelitis, left ankle and foot; E11.621 Type 2 diabetes mellitus with foot ulcer; E11.65 Type 2 diabetes mellitus with hyperglycemia; E87.6 Hypokalemia; F12.90 Cannabis use, unspecified, uncomplicated; F15.10 Other stimulant abuse, uncomplicated; F17.210 Nicotine dependence, cigarettes, uncomplicated; I10 Essential (primary) hypertension; L97.529 Non-pressure chronic ulcer of other part of left foot with unspecified severity; Z59.0 Homelessness; Z80.42 Family history of malignant neoplasm of prostate; Z82.49 Family history of ischemic heart disease and other diseases of the circulatory system; Z83.3 Family history of diabetes mellitus; Z91.19 Patient's noncompliance with other medical treatment and regimen; Z71.51 Drug abuse counseling and surveillance of drug abuser; Z79.899 Other long term (current) drug therapy
CPT/HCPCS: 36415; 71046; 73630; 73718; 80048; 80053; 80061; 80307; 82962; 83036; 83735; 83880; 84484; 85025; 85610; 85730; 86141; 86850; 86900; 86901; 87040; 87077; 87186; 87205; 93005; 93306; 93926; 96372; G0378; J0690; J0696; J1815; J2001; J2250; J3490

== ENCOUNTER 2019-08-28 09:29 | Inpatient (IN) | payer MEDICAID ==
[~2019-08-28] VITALS: Ht 167.6 cm; Wt 83.1 kg
[~2019-08-28 09:29] MED LIST: CLIN300C8 PO; LEVO750T8 PO; LISI-646 PO; METF-372 PO; SACC250C PO
[2019-08-28 11:17] LABS: Basophils # (auto) 0 10 ^3/uL (0-0.2); Basophils % (auto) 0.5 % (0.0-2.0); Eosinophils # (auto) 0.2 10 ^3/uL (0-0.8); Eosinophils % (auto) 2.4 % (0.0-7.0); Hematocrit 43.1 % (41.0-53.0); Hemoglobin 14.7 g/dL (13.5-17.5); Lymphocytes # (auto) 1.9 10 ^3/uL (0.4-5.4); Lymphocytes % (auto) 26.9 % (10.0-50.0); Mean Corpuscular Hemoglobin 30.7 pg (28.0-32.0); Mean Corpuscular Hgb Conc. 34.1 g/dL (32.0-36.0); Mean Corpuscular Volume 90.2 fL (80.0-100.0); Monocytes # (auto) 0.5 10 ^3/uL (0-1.3); Monocytes % (auto) 7.8 % (0.0-12.0); Neutrophils # (auto) 4.4 10 ^3/uL (1.6-8.6); Neutrophils % (auto) 62.4 % (37.0-80.0); Nucleated Red Blood Cells % 0.1 %; Platelet Count (auto) 381 10^3/uL (140-450); Red Blood Cells 4.78 10^6/uL (4.5-5.90); Red Cell Distribution Width 12.9 % (11.8-14.3)
[2019-08-28 11:40] LABS: Albumin 3.1 g/dL (3.4-5.0); Calcium 8.3 mg/dL (8.5-10.1)
[2019-08-28 11:48] LABS: BUN/Creatinine Ratio 15.9; Bilirubin, Total 0.4 mg/dL (0.2-1.0); Total Protein 7.2 g/dL (6.4-8.2)
[2019-08-28] MEDS ORDERED: VANCOMYCIN 1GM/250ML 250 ML IV ONE (12:30)
[2019-08-28] MEDS ORDERED: NITROGLYCERIN 0.4 MG SL TAB SL PRN ×2 (14:00→14:45)
[2019-08-28] MEDS ORDERED: MORPHINE SULF INJ 2 MG/ML SYRINGE 1ML IV PRN ×2 (14:00→14:45)
[2019-08-28] MEDS: SODIUM CHLORIDE 0.9% 1,000 ML IV SCH (14:36)
[2019-08-28] MEDS ORDERED: DEXTROSE (50%) 50ML SYRG IV PRN (14:45)
[2019-08-28] MEDS ORDERED: ALUM & MAG HYDROX-SIMETH LIQ(MAALOX) 30 ML PO PRN (14:45)
[2019-08-28] MEDS ORDERED: VANCOMYCIN PER PHARMACY 0 MG IV SCH (14:45)
[2019-08-28] MEDS ORDERED: LORazepam 0.5 MG TAB PO PRN (14:45)
[2019-08-28] MEDS ORDERED: DOCUSATE SOD 100 MG CAP PO PRN (14:45)
[2019-08-28] MEDS: INSULIN LISPRO (HUMAN) 100 UNITS/ML ML SC SCH (17:00)
[2019-08-28] MEDS: InsuLIN REG 1unit/0.01ml Soln (100units/ml) SC SCH ×2 (17:10→22:38)
[2019-08-28] MEDS: ACCU-CHEK COMFORT CURVE STRIP VI SCH ×2 (17:11→22:00)
[2019-08-28] MEDS: PIPERACILLIN-TAZOB 3.375GM 100 ML IV SCH (17:53)
[2019-08-28 20:25] VITALS: BP 149/95
--- NOTE | 2019-08-28 20:25 | NUR ---
MS admit from [facility] admitted to tele/MS. Patient oriented to Glory Wade RN primary RN, unit, room, bed, and unit policies regarding patient care and visiting hours. Patient weighed by bedscale and encouraged to call if they need something. All questions and concerns addressed, patient verbalized understanding. Note: Fall and safety precautions in place. Call light within reach.
[2019-08-28] MEDS: MORPHINE SULF INJ 2 MG/ML SYRINGE 1ML IV PRN (21:31)
[2019-08-28] MEDS: ONDANSETRON HCL 4 MG/2 ML VIAL IV PRN (21:31)
--- NOTE | 2019-08-28 21:45 | NUR ---
WOUND Picture taken of wound on left second toe.
[2019-08-28] MEDS: INSULIN LANTUS (GLARGINE) 1 /0.01ml (100units/ml) SC SCH (22:38)
--- NOTE | 2019-08-28 22:45 | NUR ---
URINE Urine sample collected per MD order and sent to lab via bullet
[2019-08-28 23:11] LABS: Urine WBC None Seen /hpf (0 - 3)
[2019-08-28] MEDS: VANCOMYCIN 1GM/250ML 250 ML IV SCH (23:11)
[2019-08-28 23:20] LABS: Urine Bacteria NONE SEEN /hpf (None Seen); Urine Blood Negative /uL (Negative); Urine Specific Gravity 1.022 (1.001-1.035)
[2019-08-28 23:34] LABS: Amphetamine Screen, Urine NEGATIVE (NEGATIVE); Barbiturate Scree,Urine NEGATIVE (NEGATIVE); Benzodiazephine Screen, Urine NEGATIVE (NEGATIVE); Cannabinoid Screen, Urine POSITIVE (NEGATIVE); Cocaine Screen, Urine NEGATIVE (NEGATIVE); Opiate Scree,Urine POSITIVE (NEGATIVE); Phencyclidine Screen, Urine NEGATIVE (NEGATIVE)
[2019-08-28 23:37] LABS: Alcohol, Urine < 3.0 mg/dL (0-10)
[2019-08-29] MEDS: PIPERACILLIN-TAZOB 3.375GM 100 ML IV SCH ×5 (00:08→23:57)
[2019-08-29] MEDS: HYDROcodone-ACET 5/325MG TAB PO PRN ×2 (00:17→16:18)
[2019-08-29 02:43] LABS: Cholesterol 166 mg/dL (< 200)
[2019-08-29 02:45] LABS: HDL Cholesterol 56 mg/dL (40-59); LDL Cholesterol 98 mg/dL (< 100); Triglycerides 102 mg/dL (< 150)
[2019-08-29 05:37] VITALS: BP 87/41
[2019-08-29 05:42] VITALS: BP 129/83
[2019-08-29 06:14] LABS: Basophils # (auto) 0 10 ^3/uL (0-0.2); Basophils % (auto) 0.3 % (0.0-2.0); Eosinophils # (auto) 0.2 10 ^3/uL (0-0.8); Eosinophils % (auto) 3.5 % (0.0-7.0); Hematocrit 41.9 % (41.0-53.0); Hemoglobin 14.6 g/dL (13.5-17.5); Lymphocytes # (auto) 2.1 10 ^3/uL (0.4-5.4); Lymphocytes % (auto) 34.7 % (10.0-50.0); Mean Corpuscular Hemoglobin 31.1 pg (28.0-32.0); Mean Corpuscular Hgb Conc. 34.8 g/dL (32.0-36.0); Mean Corpuscular Volume 89.6 fL (80.0-100.0); Monocytes # (auto) 0.5 10 ^3/uL (0-1.3); Monocytes % (auto) 8.2 % (0.0-12.0); Neutrophils # (auto) 3.3 10 ^3/uL (1.6-8.6); Neutrophils % (auto) 53.3 % (37.0-80.0); Nucleated Red Blood Cells % 0.1 %; Platelet Count (auto) 347 10^3/uL (140-450); Red Blood Cells 4.67 10^6/uL (4.5-5.90); Red Cell Distribution Width 12.8 % (11.8-14.3); White Blood Cell 6.1 10^3/uL (4.4-10.8)
[2019-08-29] MEDS: InsuLIN REG 1unit/0.01ml Soln (100units/ml) SC SCH ×4 (06:18→21:38)
[2019-08-29] MEDS: ACCU-CHEK COMFORT CURVE STRIP VI SCH ×4 (06:18→21:39)
[2019-08-29] MEDS: INSULIN LISPRO (HUMAN) 100 UNITS/ML ML SC SCH ×3 (06:19→17:47)
[2019-08-29 06:27] LABS: INR 1.02 (0.9-1.15); Partial Thromboplastin Time 29.5 sec (23.64-32.05)
[2019-08-29 06:31] LABS: Potassium 3.8 mmol/L (3.5-5.1)
[2019-08-29 06:49] LABS: Albumin 2.9 g/dL (3.4-5.0); BUN/Creatinine Ratio 16.5; Bilirubin, Total 0.5 mg/dL (0.2-1.0); Calcium 8.3 mg/dL (8.5-10.1); Magnesium 2.2 mg/dL (1.6-2.6); Phosphorus 3.6 mg/dL (2.5-4.90); Total Protein 6.5 g/dL (6.4-8.2)
[2019-08-29] MEDS: SODIUM CHLORIDE 0.9% 1,000 ML IV SCH ×2 (07:16→23:57)
[2019-08-29 09:00] VITALS: BP 135/89
[2019-08-29] MEDS: LISINOPRIL 20 MG TAB PO SCH (09:42)
[2019-08-29] MEDS: ENOXAPARIN SOD 40 MG/0.4 ML SYRINGE SC SCH (09:43)
[2019-08-29] MEDS: VANCOMYCIN 1GM/250ML 250 ML IV SCH ×3 (09:43→21:37)
[2019-08-29] MEDS: FLORASTOR (S. BOULARDII) 250 MG CAP PO SCH (11:58)
--- NOTE | 2019-08-29 12:00 | NUR ---
WOUND CARE NOTE: IN TO SEE PATIENT AT THIS TIME PER WOUND CARE CONSULT REQUEST. PATIENT WAS NOTED UPON ADMIT TO HAVE WOUND TO LEFT # 2 TOE. WOUND PHOTO TAKEN AT THAT TIME BY BEDSIDE NURSE PER PROTOCOL. PATIENT ADMITTED TO [facility] WITH DIAGNOSIS OF NON HEALING DFU TO LEFT FOOT WITH OSTEOMYELITIS. PATIENT HAS A PODIATRY CONSULT PENDING WITH DR. ORTA. PATIENT NOTED TO HAVE AN AMPUTATION STUMP TO THE LEFT # 1 TOE, WITH VRY EDEMATOUS # 2 TOE. THERE IS A SMALL 0.7 X 0.8 CM DFU TO THE PLANTAR # 2 TOE. WOUND BED IS DUSKY RED, WITH CALLOUSED PERIWOUND. NO ODOR NOTED. PATIENT HAS NEUROPATHY, WITH NO PAIN NOTED BY PATIENT TO HIS BILATERAL FEET. CLEANSED WOUND WITH WOUND CLEANSER, PATTED DRY WITH STERILE GAUZE. APPLIED THERAHONEY, OPTIFOAM GENTLE DRESSING. STOCKINETTE APPLIED OVER WOUND/FOOT TO FURTHER SECURE. RECOMMEND: EOD/PRN DRESSING CHANGE UNTIL SEEN BY FIRE CHIEF'S AIDE, DIETARY CONSULT, SKIN/WOUND CARE PLAN, CONTINUED MONITORING BY WOUND CARE UNTIL SEEN BY DR. ORTA. WILL DEFER ALL OTHER RECOMMENDATIONS TO DR. ORTA AT THIS POINT. Addendum: 08/29/19 at 1537 by Sandy Duran RN Amended: Links added.
--- NOTE | 2019-08-29 12:00 | NUR ---
WOUND CARE BEDSIDE TO SEE PATEINT.
[2019-08-29 13:00] VITALS: BP 138/90
--- NOTE | 2019-08-29 14:20 | NUR ---
Assessment Patient is a 44-year-old male who is alert and oriented. Prior to admission patient lived home with a friend and functioned independently. Patient can care for his own ADLs. Patient informed me he does not have any medical equipment and would like to see if he qualifies for a walker. Per patient he will return to his prior living arrangement post discharge and a friend will transport him home. Advised patient there is a social service consult for PCP and cane. Informed patient Ledy Diaz will assist with helping him choose a PCP. Informed patient his health plan does not cover for a cane. Informed patient I will inform bedside nurse regarding order for walker. Informed patient clinical information will be faxed to [facility]. Informed patient he has the right to participate in all discharge planning. Patient verbalized understanding and agreed to discharge plan. Faxed clinica information to [employer]. Per Aria russell DME walker will be deliver to bedside [facility]. Addendum: 08/30/19 at 0920 by JAMAR BURNETTE Amended: Links added.
--- NOTE | 2019-08-29 14:34 | NUR ---
ENDORSED CARE TO LIA BLOOM
[2019-08-29 16:51] VITALS: BP 109/69
--- NOTE | 2019-08-29 19:30 | NUR ---
Opening Shift Note Assumed care of patient, awake and alert. No S/S of distress/SOB or pain. Instructed on POC and to call for assist PRN, will continue to monitor for changes Q1hr and PRN. Bed in lowest locked position, safety precautions in place and call light within reach. Signed: 08/30/19 at 004 by DAIN VARGAS SN <Co-Signature Required> Co-Signed: 08/30/19 at 40 by Glory Wade RN RN
--- NOTE | 2019-08-29 21:00 | NUR ---
Kit Called and spoke with pharmacy regarding Vanco schedule. Informed them that Zosyn just finished infusing and will administer 1900 Vanco at this time (see EMAR). Pharmacy stated will adjust future schedule for Vanco, and Vanco troughs. Signed: 08/30/19 at 0044 by DAIN VARGAS SN <Co-Signature Required> Co-Signed: 08/30/19 at 43 by Glory Wade RN RN
[2019-08-29] MEDS: INSULIN LANTUS (GLARGINE) 1 /0.01ml (100units/ml) SC SCH (21:39)
[2019-08-29] MEDS: MORPHINE SULF INJ 2 MG/ML SYRINGE 1ML IV PRN (21:40)
[2019-08-29] MEDS: ONDANSETRON HCL 4 MG/2 ML VIAL IV PRN (21:41)
[2019-08-29 22:00] VITALS: BP 135/88
[2019-08-30] MEDS: VANCOMYCIN 1GM/250ML 250 ML IV SCH ×3 (04:56→21:02)
[2019-08-30 05:06] VITALS: BP 122/78
[2019-08-30] MEDS: PIPERACILLIN-TAZOB 3.375GM 100 ML IV SCH ×4 (06:20→23:22)
[2019-08-30] MEDS: INSULIN LISPRO (HUMAN) 100 UNITS/ML ML SC SCH ×3 (06:27→17:00)
[2019-08-30] MEDS: InsuLIN REG 1unit/0.01ml Soln (100units/ml) SC SCH ×4 (06:28→21:19)
[2019-08-30] MEDS: ACCU-CHEK COMFORT CURVE STRIP VI SCH ×4 (06:28→21:20)
--- NOTE | 2019-08-30 07:15 | NUR ---
Opening Shift Note Assumed care of patient, awake and alert. No S/S of distress/SOB or pain. Instructed on POC and to call for assist PRN, will continue to monitor for changes Q1hr and PRN.Dressing to left food CDI; remains NPO for foot surgery with Dr Zhao. Bed in lowest locked position, safety precautions in place and call light within reach.
[2019-08-30 08:41] VITALS: BP 131/87
[2019-08-30] MEDS: ENOXAPARIN SOD 40 MG/0.4 ML SYRINGE SC SCH (10:00)
[2019-08-30] MEDS: FLORASTOR (S. BOULARDII) 250 MG CAP PO SCH (10:00)
[2019-08-30] MEDS: LISINOPRIL 20 MG TAB PO SCH (10:03)
--- NOTE | 2019-08-30 10:03 | NUR ---
Dr Zhao bedside patient will have surgery at noon today.
--- NOTE | 2019-08-30 11:45 | NUR ---
transported patient to OR via hospital bed endorsed care to Steffi.
[2019-08-30] MEDS ORDERED: BUPIVACAINE HCL 50 ML ONE (11:59)
[2019-08-30] MEDS ORDERED: LIDOCAINE 1% HCL (LOCAL ANESTH.) INJ 20ML MDV ONE (11:59)
[2019-08-30] MEDS ORDERED: ceFAZolin 1GM/50ML 100 ML IV ONE (12:00)
[2019-08-30] MEDS ORDERED: ePHEDrine SULFATE 50 MG/ML AMP IV PRN (12:30)
[2019-08-30] MEDS ORDERED: MIDAZOLAM HCL 1MG/1ML-2 ML VIAL IV PRN (12:30)
[2019-08-30] MEDS ORDERED: ACCU-CHEK COMFORT CURVE STRIP VI ONE (12:30)
[2019-08-30] MEDS ORDERED: ONDANSETRON HCL 4 MG/2 ML VIAL IV PRN (12:30)
[2019-08-30] MEDS ORDERED: HYDROmorphone HCL 2 MG/ML VL IV PRN (12:30)
[2019-08-30] MEDS ORDERED: LABETALOL HCL 5 MG/ML 4ML SYRINGE IV PRN (12:30)
[2019-08-30] MEDS ORDERED: MORPHINE SULFATE 4 MG/ML SYR/VIAL IV PRN (12:30)
[2019-08-30] MEDS ORDERED: MIDAZOLAM HCL 1MG/1ML-2 ML VIAL ONE (12:39)
[2019-08-30] MEDS ORDERED: fentaNYL CITRATE 100 MCG/2 ML VL ONE (12:39)
[2019-08-30] MEDS ORDERED: PROPOFOL 10 MG/ML 20 ML IV ONE (12:45)
[2019-08-30] MEDS ORDERED: DexAMETHasone SOD PHOS 10MG/1ML VIAL INJ ONE (12:45)
[2019-08-30 13:00] VITALS: BP 125/79
--- NOTE | 2019-08-30 14:00 | NUR ---
returned from surgery RECEIVED REPORT BEDSIDE FROM YULIYA BLOOM.PATIENT STATUS POST LEFT SECOND TOE AMPUTATIOPN WITH DR ROBLES.DRESSING CLEAN, DRY AND INTACT. PATIENT AWAKE AND ALERT, DENIED PAIN NO DISTRESS NOTED. PATIENT IS GOO SPIRITS AND JOKING WITH STAFF. DR ROBLES DISCHARGED PATIENT. PAGED DR RIBERA TO VERIFY OK TO D/C PATIENT AWAITING CALL BACK. PATIENT WILL ALSO NEED A WC D/T NON WEIGHT BEARING ON THE LEFT FOOT.WILL CONTINUE TO MONITOR.
[2019-08-30] MEDS ORDERED: ceFAZolin 1GM/50ML 50 ML IV ONE (14:14)
--- NOTE | 2019-08-30 15:20 | NUR ---
WHEELCHAIR JAMAR Merida STATED PATIENT DOESN'T QUALIFY FOR A WC HE WOULD NEED TO PAY OUT OF POCKET. JAMAR WILL FOLLOW UP ON THE COST OF A WC.
--- NOTE | 2019-08-30 15:21 | NUR ---
RE-PAGED MOUNIKA TO COMMUNICATE THE PATIENT NEED FOR A WC AND VERIFY PATIENT WILL D/C TODAY OR TOMORROW.
--- NOTE | 2019-08-30 15:22 | NUR ---
MERLE Cifuentes advised me patient will need a wheelchair. Informed MERLE Cifuentes patient health plan does not cover a wheelchair and he would have to pay out of pocket to rent one. Provided MERLE Cifuentes with a monthly cost for wheelchair of 150 with [facility] [employer].
--- NOTE | 2019-08-30 15:25 | NUR ---
SUZETTE RETURNED CALL. HOLD DISCHARGE UNTIL WOUND CULTURES RESULT.SHE IS AWARE PATIENT NEEDS A WC AND WILL NEED TO PAY OUT OF POCKET
[2019-08-30] MEDS: SODIUM CHLORIDE 0.9% 1,000 ML IV SCH (16:36)
[2019-08-30 16:52] VITALS: BP 138/90
--- NOTE | 2019-08-30 18:04 | NUR ---
PATIENT UNABLE TO AFFORD A WHEEL CHAIR.
[2019-08-30] MEDS: INSULIN LANTUS (GLARGINE) 1 /0.01ml (100units/ml) SC SCH (21:20)
[2019-08-30] MEDS: HYDROcodone-ACET 5/325MG TAB PO PRN (21:30)
[2019-08-30 22:00] VITALS: BP 149/89
[2019-08-31 05:00] VITALS: BP 132/74
[2019-08-31] MEDS: VANCOMYCIN 1GM/250ML 250 ML IV SCH (05:03)
[2019-08-31 06:16] LABS: Basophils # (auto) 0 10 ^3/uL (0-0.2); Basophils % (auto) 0.1 % (0.0-2.0); Eosinophils # (auto) 0 10 ^3/uL (0-0.8); Eosinophils % (auto) 0.1 % (0.0-7.0); Hemoglobin 14.8 g/dL (13.5-17.5); Lymphocytes # (auto) 1.7 10 ^3/uL (0.4-5.4); Lymphocytes % (auto) 17.9 % (10.0-50.0); Mean Corpuscular Hemoglobin 30.8 pg (28.0-32.0); Mean Corpuscular Hgb Conc. 34.3 g/dL (32.0-36.0); Mean Corpuscular Volume 89.7 fL (80.0-100.0); Monocytes # (auto) 0.6 10 ^3/uL (0-1.3); Monocytes % (auto) 6.5 % (0.0-12.0); Neutrophils # (auto) 7.3 10 ^3/uL (1.6-8.6); Neutrophils % (auto) 75.4 % (37.0-80.0); Platelet Count (auto) 368 10^3/uL (140-450); Red Cell Distribution Width 12.9 % (11.8-14.3); White Blood Cell 9.7 10^3/uL (4.4-10.8)
[2019-08-31] MEDS: PIPERACILLIN-TAZOB 3.375GM 100 ML IV SCH (06:35)
[2019-08-31] MEDS: INSULIN LISPRO (HUMAN) 100 UNITS/ML ML SC SCH ×2 (06:36→11:30)
[2019-08-31 06:39] LABS: Potassium 3.7 mmol/L (3.5-5.1)
[2019-08-31] MEDS: InsuLIN REG 1unit/0.01ml Soln (100units/ml) SC SCH ×2 (06:39→11:30)
[2019-08-31 06:40] LABS: BUN/Creatinine Ratio 16.7
[2019-08-31] MEDS: ACCU-CHEK COMFORT CURVE STRIP VI SCH ×2 (06:40→11:47)
--- NOTE | 2019-08-31 08:00 | NUR ---
OPENING SHIFT NOTE ASSUMED CARE OF PATIENT AWAKE AND ALERT. NO S/S OF DISTRESS NOTED OR COMPLAINTS OF PAIN. PATIENT UPDATED ON POC FOR THE DAY AND ALL QUESTIONS ANSWERED. BED IS IN LOWEST, LOCKED POSITION WITH SIDE RAILS UP X2 AND CALL LIGHT WITHIN REACH. WILL CONTINUE TO MONITOR Q1H AND PRN.
[2019-08-31 09:00] VITALS: BP 144/88
[2019-08-31] MEDS: LISINOPRIL 20 MG TAB PO SCH (10:12)
[2019-08-31] MEDS: ENOXAPARIN SOD 40 MG/0.4 ML SYRINGE SC SCH (10:12)
[2019-08-31] MEDS: FLORASTOR (S. BOULARDII) 250 MG CAP PO SCH (10:12)
[2019-08-31] MEDS: HYDROcodone-ACET 5/325MG TAB PO PRN (10:29)
[2019-08-31] MEDS ORDERED: LISI-646 PO (11:33)
[2019-08-31] MEDS ORDERED: CEPH-37 PO (11:33)
[2019-08-31] MEDS ORDERED: ATOR40TA52 PO (11:37)
[2019-08-31] MEDS ORDERED: METF-371 PO (11:37)
[2019-08-31] MEDS ORDERED: GLIP5TAB12 PO (11:37)
--- NOTE | 2019-08-31 13:23 | NUR ---
Discharge instructions given as ordered. Encourage to follow up with PMD as instructed. All questions and concerns addressed. Patient verbalized understanding. IV removed with catheter intact, pressure dressing applied. 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 No distress noted at time of departure.
== END 2019-08-31 13:22 | disposition home or self-care (01) | DRG 314 ==
LOC: ER 09:29 → OVERFLOW 09:30 → WEST WING 20:25
PROVIDERS: ADMIT Hospitalist; ATTEND Internal Medicine Nephrology
PROC: 0Y6S0Z0 Detachment at Left 2nd Toe, Complete, Open Approach (ICD-10-PCS; principal; 2019-08-30 12:25)
DX: E11.69 Type 2 diabetes mellitus with other specified complication (principal); E44.0 Moderate protein-calorie malnutrition; M86.172 Other acute osteomyelitis, left ankle and foot; E11.51 Type 2 diabetes mellitus with diabetic peripheral angiopathy without gangrene; E11.621 Type 2 diabetes mellitus with foot ulcer; E11.65 Type 2 diabetes mellitus with hyperglycemia; L97.529 Non-pressure chronic ulcer of other part of left foot with unspecified severity; F12.10 Cannabis abuse, uncomplicated; I10 Essential (primary) hypertension; Z20.828 Contact with and (suspected) exposure to other viral communicable diseases; M86.672 Other chronic osteomyelitis, left ankle and foot; F15.10 Other stimulant abuse, uncomplicated; F17.210 Nicotine dependence, cigarettes, uncomplicated; Z59.0 Homelessness; Z79.84 Long term (current) use of oral hypoglycemic drugs; Z80.42 Family history of malignant neoplasm of prostate; Z82.49 Family history of ischemic heart disease and other diseases of the circulatory system; Z83.3 Family history of diabetes mellitus; Z79.899 Other long term (current) drug therapy; Z91.14 Patient's other noncompliance with medication regimen
CPT/HCPCS: 36415; 73630; 80048; 80053; 80061; 80202; 80307; 81001; 82962; 83036; 83735; 84100; 85025; 85610; 85730; 86141; 86850; 86900; 86901; 87040; 87070; 87075; 87077; 87086; 87186; 87205; G0378; J0690; J1100; J1815; J2001; J2250; J2405; J2543; J2704; J3490

== ENCOUNTER 2023-07-10 14:42 | Emergency (ER) | payer MEDICAID, OTHER ==
[~2023-07-10] VITALS: Ht 167.6 cm; Wt 100.8 kg
[~2023-07-10 14:42] MED LIST changes: +CEPH-37 PO; -CLIN300C8 PO; +GLIP5TAB21 PO; -LEVO750T8 PO; -LISI-646 PO; +LISI20TA56 PO; +METF-371 PO; -METF-372 PO; -SACC250C PO
[2023-07-10 15:21] VITALS: BP 181/100; PULSE 89; RESP 14; TEMP 97.9; O2SAT 97
[2023-07-10] MEDS: methylPREDNISolone SOD SUCC 125 MG/2 ML VL IM ONE (15:52)
[2023-07-10] MEDS: EPINEPHrine HCL 1 MG/1 ML AMP SC ONE (15:53)
[2023-07-10] MEDS ORDERED: TRIA0.02 TOP (16:04)
[2023-07-10] MEDS ORDERED: CEPH500C PO (16:04)
[2023-07-10] MEDS ORDERED: METH4PAK PO (16:04)
== END 2023-07-10 16:25 | disposition home or self-care (01) ==
LOC: ER 14:42
DX: L25.9 Unspecified contact dermatitis, unspecified cause (principal); E11.9 Type 2 diabetes mellitus without complications; I10 Essential (primary) hypertension; F17.210 Nicotine dependence, cigarettes, uncomplicated; Z79.899 Other long term (current) drug therapy
CPT/HCPCS: 96372; 99284; J0171; J2930

== ENCOUNTER 2024-07-05 15:44 | Inpatient (IN) | payer MEDICAID, OTHER ==
[~2024-07-05] VITALS: Ht 167.6 cm; Wt 92.8 kg
[~2024-07-05 15:44] MED LIST changes: +CEPH500C PO; +METH4PAK PO; +TRIA0.02 TOP
--- NOTE | 2024-07-05 16:20 | ED.PDOC ---
Musculoskeletal HPI Comments Vitals Temperature: 98.1 Respiratory rate: 19 SpO2: 96% on RA Heart rate: 102 Blood pressure: 171/87 Past Medical History: DM, HTN Past Surgical History: Lt big toe amputation Social History: + alcohol, +tobacco, +marijuana HPI: Poor Historian. 49-YEAR-OLD MALE PRESENTS TO EMERGENCY DEPART FOR EVALUATION OF bottom of left foot ulcer for few months. He has been going to his PCP for this without any effective treatment. Patient states that the pain is worse and is more swelling and redness. He is having pain when he ambulates. Denies any other acute symptoms REVIEW OF SYSTEMS: CONSTITUTIONAL: Denies acute: fever, diaphoresis, chills, generalized weakness. HEAD: Denies acute: headache, photophobia Eyes: Denies acute: Double vision, vision loss, eye pain, eye discharge. EARS: Denies acute: tinnitus, hearing loss, ear discharge, ear pain, THROAT: Denies acute: sore throat, swelling, difficulty swallowing , pain with swallowing, change in voice. NECK: Denies acute: neck pain, neck swelling, stiff neck. HEART: Denies acute : chest pain, palpitations, LUNGS: Denies acute: SOB, wheezing, cough, hemoptysis ABDOMEN: Denies acute: abdominal pain, Nausea, Vomiting, diarrhea, melena , hematemesis, hematochezia SKIN: Denies acute: Delete the itchiness. EXTREMITIES: Denies acute: calf pain, numbness, tingling, weakness, Denies acute: Low back pain. Neuro: Denies acute: focal neurological deficit, motor or sensory focal neurological deficit, tremors, seizure like activity, confusion, dizziness, change in mental status, loss of bowel or bladder function, cauda equina like symptoms. : Denies acute: dysuria, hematuria, flank pain, increase in urinary frequency. PSYCH: Denies acute: hallucination, suicidal ideation, homicidal ideation. PHYSICAL EXAM: General: ----[id number]----acute distress, awake and alert. Head: normocephalic, atraumatic. Neck: supple, trachea is midline, no swelling. Throat: Normal phonation. Eyes:, no erythema, no purulent discharge, no proptosis, no icterus. Heart: regular rate, regular rhythm, no significant murmur appreciated. Lungs: no apparent respiratory distress, Able to speak in full sentences. No wheezing, no rhonchi, no crackles. No stridors Clear to auscultation bilaterally. Abdomen: non tender to palpation, non distended, soft, no guarding, no rebound, + bowel sounds. Neuro: Awake, Alert, oriented to name, self, situation, follows commands GCS=15. Speech is normal. Skin: no petechia, no purpura, no cyanosis, non-pale, not jaundice. Lower extremities: --no - Pitting edema no deformity, , no calf TTP. Noted left foot lateral plantar aspect diabetic also that is tender to palpation with some swelling. Patient is neurovascularly intact in the affected extremity. Pedal pulses palpable. Sensory and motor are present. Makes eye contact. moves all four extremities. Face: no apparent facial droop. Ambulating in the ED independently. Pedal pulses are palpable. ED COURSE: Time Seen by MD: 16:15 Primary Care Provider: NONE Reviewed Notes: Nurses Notes, Medications, Allergies Allergies: Coded Allergies: NO KNOWN ALLERGIES (Unverified , 09/13/18) Home Meds Active Scripts Cephalexin Monohydrate (Cephalexin) 500 Mg Cap, 1 CAP PO QID, #32 CAP Prov:RODO WOOD 07/10/23 Triamcinolone Acetonide (Triamcinolone Acetonide) 0.025 % Cre, 1 APPLIC TOP BID, #30 GRAMS Prov:RODO WOOD 07/10/23 Methylprednisolone (Medrol Dosepak) 4 Mg Jaime, 4 MG PO UD, #21 TAB UAD Prov:RODO WOOD 07/10/23 Glipizide (Glipizide) 5 Mg Tab, 1 TAB PO BID for 30 Days, #60 TAB 1 Refill Prov:JAMILA MCLEOD MD 08/31/19 Metformin Hydrochloride (Metformin Hcl) 850 Mg Tab, 1 TAB PO BID for 30 Days, #60 TAB 1 Refill Prov:JAMILA MCLEOD MD 08/31/19 Cephalexin (Keflex) 500 Mg Cap, 1 CAP PO BID for 14 Days, #28 CAP Prov:JAMILA MCLEOD MD 08/31/19 Lisinopril (Lisinopril) 20 Mg Tab, 20 MG PO DAILY for 30 Days, #30 TAB 1 Refill Prov:JAMILA MCLEOD MD 08/31/19 Information Source: Patient Mode of Arrival: Ambulatory Location: Left Extremity Location: Foot Timing: Months Prehospital treatment: None Severity: Moderate Able to Move Extremity: Yes Bear Weight: Limited Pain: Moderate Associated signs and symptoms: Foot pain (left) Was a procedure done? Was a procedure done?: No Differential Diagnosis EXT Differential Diagnosis: Cellulitis, CHF, Deep Vein Thrombosis, Compartment Syndrome, Fracture, Sprain, Dislocation, Gout, DJD, Contusion, Strain, Rheumatoid, Septic, Neurovascular injury, Arthritis, Bursitis X-Ray, Labs, Meds, VS Vital Signs Date Time Temp Pulse Resp B/P (MAP) Pulse Ox O2 Delivery O2 Flow Rate FiO2 07/05/24 20:39 78 20 98 Room Air* 0 21 07/05/24 19:05 98.8 07/05/24 18:05 100.8 07/05/24 17:51 100.7 81 18 122/74 (90) 95 100.7 07/05/24 16:22 98.1 102 19 171/87 (115) 96 98.1 Lab Test 07/05/24 21:14 07/05/24 18:53 07/05/24 18:00 07/05/24 17:44 Range/Units Urine Color Light-yellow Yellow Urine Clarity Clear Clear Urine pH 5.5 5.0-9.0 Urine Specific [place] 1.014 1.001-1.035 Urine Protein 2+ H Negative Urine Ketones Negative Negative Urine Blood Trace H Negative /uL Urine Nitrite Negative Negative Urine Bilirubin Negative Negative Urine Urobilinogen Normal Negative mg/dL Urine Leukocyte Esterase Negative Negative /uL Urine RBC 1 0 - 3 /hpf Urine Microscopic WBC 1 0-3 /HPF Urine Squamous Epithelial Cells Few <5 /hpf Urine Amorphous Crystals Few None Seen /hpf Urine Bacteria None seen None Seen /hpf Urine Glucose 4+ H Normal mg/dL Urine Opiates Screen Neg NEGATIVE Urine Fentanyl Screen Neg NEGATIVE Urine Barbiturates Screen Neg NEGATIVE Urine Phencyclidine Screen Neg NEGATIVE Urine Amphetamines Screen Neg NEGATIVE Urine Benzodiazepines Screen Neg NEGATIVE Urine Cocaine Screen Neg NEGATIVE Urine Cannabinoids Screen Neg NEGATIVE POC Glucose 307 H 508 *H 70-106 mg/dl Lactic Acid Level 2.5 *H 0.4-2.0 mmol/L Test 07/05/24 16:30 07/05/24 16:20 07/05/24 16:19 Range/Units White Blood Count 13.7 H 4.4-10.8 10^3/uL Red Blood Count 4.85 4.5-5.90 10^6/uL Hemoglobin 15.0 13.5-17.5 g/dL Hematocrit 43.9 41.0-53.0 % Mean Corpuscular Volume 90.5 80.0-100.0 fL Mean Corpuscular Hemoglobin 30.9 28.0-32.0 pg Mean Corpuscular Hemoglobin Concent 34.1 32.0-36.0 g/dL Red Cell Distribution Width 12.7 11.8-14.3 % Platelet Count 231 140-450 10^3/uL Mean Platelet Volume 7.0 6.9-10.8 fL Neutrophils (%) (Auto) 82.6 H 37.0-80.0 % Lymphocytes (%) (Auto) 10.2 10.0-50.0 % Monocytes (%) (Auto) 6.1 0.0-12.0 % Eosinophils (%) (Auto) 0.7 0.0-7.0 % Basophils (%) (Auto) 0.4 0.0-2.0 % Neutrophils # (Auto) 11.3 H 1.6-8.6 10 ^3/uL Lymphocytes # (Auto) 1.4 0.4-5.4 10 ^3/uL Monocytes # (Auto) 0.8 0-1.3 10 ^3/uL Eosinophils # (Auto) 0.1 0-0.8 10 ^3/uL Basophils # (Auto) 0.1 0-0.2 10 ^3/uL Nucleated Red Blood Cells 0.0 % Erythrocyte Sedimentation Rate 18 0-20 mm/hr Sodium Level 128 L 136-145 mmol/L Potassium Level 4.6 3.5-5.1 mmol/L Chloride Level 95 L 98-107 mmol/L Carbon Dioxide Level 25 20-31 mmol/L Anion Gap 8 5-15 Blood Urea Nitrogen 41 H 9-23 mg/dL Creatinine 1.87 H 0.700-1.30 mg/dL Glomerular Filtration Rate Calc 43 >90 mL/min BUN/Creatinine Ratio 21.9 H 10.0-20.0 Serum Glucose 465 *H 74-106 mg/dL Lactic Acid Level 2.2 *H 0.4-2.0 mmol/L Calcium Level 9.1 8.7-10.4 mg/dL Total Bilirubin 0.5 0.2-1.0 mg/dL Aspartate Amino Transferase (AST) 22 13-40 U/L Alanine Aminotransferase (ALT) 24 7-40 U/L Alkaline Phosphatase 68 46-116 U/L C-Reactive Protein High Sensitivity 0.77 <1.0 mg/dL B-Type Natriuretic Peptide 55.70 0-100 pg/mL Total Protein 6.6 5.7-8.2 g/dL Albumin 4.1 3.2-4.8 g/dL Beta-Hydroxybutyric Acid 0.084 < 0.4 mmol/L POC Glucose 461 *H 436 *H 70-106 mg/dl Current Medications Medications (Trade) Dose Ordered Sig/Desirae Route Start Time Stop Time Status Last Admin Sodium Chloride 1,000 ml @ 1,000 mls/hr Q1H ONCE IV 07/05/24 16:30 07/05/24 17:29 DC 07/05/24 17:46 Vancomycin HCl 250 ml @ 250 mls/hr ONCE ONCE IV 07/05/24 16:30 07/05/24 17:29 DC 07/05/24 17:45 Insulin Human Regular (InsuLIN R) 5 units ONCE ONCE IV 07/05/24 17:15 07/05/24 17:25 DC 07/05/24 17:45 Piperacillin Sod/ Tazobactam Sod 100 ml @ 100 mls/hr ONCE ONCE IV 07/05/24 17:30 07/05/24 18:30 DC 07/05/24 17:44 Acetaminophen (Tylenol Tablet) 650 mg ONCE ONCE PO 07/05/24 18:00 07/05/24 18:01 DC 07/05/24 18:05 Sodium Chloride 1,000 ml @ 1,000 mls/hr Q1H ONCE IV 07/05/24 19:15 07/05/24 20:14 DC 07/05/24 20:[address] [address] Ph: [phone] DIAGNOSTIC IMAGING Diagnostic Imaging Report : [id number] Signed PATIENT: DADA MCCARTY ACCT: [id number] UNIT: [id number] : 1975 LOC: ER ROOM / BED: / AGE / SEX: 49 / M ADM STATUS: REG ER SERVICE 1616 ORDERING PHYSICIAN: ARTURO WHITT DO PROCEDURE(s): LFOOT - L FOOT 3 VIEW XRAY REASON: Diabetic foot wound ORDER NUMBER(s): [id number], ACCESSION NUMBER(s): [id number] CLINICAL INDICATION: Diabetic foot wound TECHNIQUE: 3 radiographic views of the left foot were obtained. Comparison: None FINDINGS/IMPRESSION: Postsurgical changes are visualized in the 1st digit from amputation. ATED BY: MIRIAN OWUSU MD DICTATED DATE/TIME: 07/05/241711 SIGNED BY: MIRIAN OWUSU MD SIGNED DATE/TIME: 07/05/241711 CC: [place] [id number] Ph: [phone] DIAGNOSTIC IMAGING Diagnostic Imaging Report : [id number] Signed PATIENT: DADA MCCARTY ACCT: [id number] UNIT: [id number] : 1975 LOC: OVERFLOW ROOM / BED: [facility] [place] / A AGE / SEX: 49 / M ADM STATUS: ADM IN SERVICE 2221 ORDERING PHYSICIAN: KRISTEN LOGAN PROCEDURE(s): LLDVT - LT Lower DVT REASON: Left lower limb swelling ORDER NUMBER(s): [id number], ACCESSION NUMBER(s): [id number] Left lower extremity venous duplex Clinical History: Left lower limb swelling Comparison: None Technique: Duplex Doppler evaluation of the deep venous system of the left lower extremity from the common femoral vein to the popliteal vein including color Doppler and spectral/pulsed waveform analysis was performed. Findings: 1. There is good flow 2. and waveform 3. in the left common femoral 4. vein and left 5. greater saphenous 6. vein. 7. There is good flow 8. compression waveform 9. in the left superficial 10. femoral 11. vein superiorly. 12. There is good flow 13. and compression in the mid left 14. superficial 15. femoral 16. vein 17. . 18. There is good flow 19. but lack 20. of compression 21. and augmentation in the left popliteal 22. vein. 23. There is good 24. flow in the left posterior tibialis 25. vein 26. . 27. IMPRESSION: 1. Non occluding thrombus left popliteal vein ATED BY: VALERIANO SINGH MD DICTATED DATE/TIME: 07/05/242332 SIGNED BY: VALERIANO SINGH MD SIGNED DATE/TIME: 07/05/242332 CC: [place] [id number] Ph: [phone] DIAGNOSTIC IMAGING Diagnostic Imaging Report : [id number] Signed PATIENT: DADA MCCARTY ACCT: [id number] UNIT: [id number] : 1975 LOC: OVERFLOW ROOM / BED: [address] [place] [address] AGE / SEX: 49 / M ADM STATUS: ADM IN SERVICE 20 ORDERING PHYSICIAN: KRISTEN LOGNA RESIDENT PROCEDURE(s): LLEAD - Lt Low Ext Art Duplex REASON: Rule out PAD ORDER NUMBER(s): [id number], ACCESSION NUMBER(s): [id number] Left Lower Extremity Arterial Duplex Clinical History: Rule out PAD Comparison: None Technique: Duplex Doppler evaluation including color Doppler and spectral/pulsed waveform analysis of the lower extremity arteries was performed. Findings: Peak systolic velocities are as follows: SH[employer]ER [employer] TONER 132 cm/s Deep femoral 7.3 cm/s SFA proximal 143 cm/s SFA mid-portion 95 cm/s SFA distal 85 cm/s Popliteal 9 cm/s Posterior tibial 118 cm/s Dorsalis pedis 113 cm/s The waveforms are triphasic with diastolic flow. IMPRESSION: 1. No hemodynamically significant stenosis based on peak systolic velocity criteria identified in the left lower extremity. REFERENCE VALUES, [facility] ([facility]) vascular Imaging Lab Criteria: Peak systolic velocity ranges (in cm/sec) are as follows: <150 cm/s - <20 % stenosis 150-200 cm/s - 20-49% stenosis 200-300 cm/s - 50-75% stenosis >300 cm/s -> 75% stenosis ATED BY: FLACO COOPER MD DICTATED DATE/TIME: 07/05/242347 SIGNED BY: FLACO COOPER MD SIGNED DATE/TIME: 07/05/242347 CC: [place] [address] Ph: [phone] DIAGNOSTIC IMAGING Diagnostic Imaging Report : [id number] Signed PATIENT: DADA MCCARTY ACCT: [id number] UNIT: [id number] : 1975 LOC: ER ROOM / BED: / AGE / SEX: 49 / M ADM STATUS: REG ER SERVICE 161 ORDERING PHYSICIAN: ARTURO WHITT DO PROCEDURE(s): LFOOT - L FOOT 3 VIEW XRAY REASON: Diabetic foot wound ORDER NUMBER(s): [id number], ACCESSION NUMBER(s): [id number] CLINICAL INDICATION: Diabetic foot wound TECHNIQUE: 3 radiographic views of the left foot were obtained. Comparison: None FINDINGS/IMPRESSION: Postsurgical changes are visualized in the 1st digit from amputation. ATED BY: MIRIAN OWUSU MD DICTATED DATE/TIME: 07/05/241711 SIGNED BY: MIRIAN OWUSU MD SIGNED DATE/TIME: 07/05/241711 CC: Time of 1ST Reevaluation: 16:45 Reevaluation 1ST: Unchanged Time of 2ND Reevaluation: 17:39 (SEPSIS PROTOCOL WAS STARTED AWHILE AGO.) Patient Education/Counseling: Diagnosis, Treatment Family Education/Counseling: No Family Present Departure 1 Departure Time of Disposition: 17:17 Impression: Primary Impression: Diabetic foot ulcer Additional Impressions: Hyperglycemia due to diabetes mellitus Uncontrolled diabetes mellitus Leukocytosis Sepsis Disposition: 09 ADMITTED INPATIENT Admit to: [facility] Condition: Guarded Additional Instructions: [facility] [address] [facility] [address] Ph: [phone] DIAGNOSTIC IMAGING Diagnostic Imaging Report : [id number] Signed PATIENT: DADA MCCARTY ACCT: [id number] UNIT: [id number] : 1975 LOC: ER ROOM / BED: / AGE / SEX: 49 / M ADM STATUS: REG ER SERVICE 1616 ORDERING PHYSICIAN: ARTURO WHITT DO PROCEDURE(s): LFOOT - L FOOT 3 VIEW XRAY REASON: Diabetic foot wound ORDER NUMBER(s): [id number], ACCESSION NUMBER(s): [id number] CLINICAL INDICATION: Diabetic foot wound TECHNIQUE: 3 radiographic views of the left foot were obtained. Comparison: None FINDINGS/IMPRESSION: Postsurgical changes are visualized in the 1st digit from amputation. ATED BY: MIRIAN OWUSU MD DICTATED DATE/TIME: 07/05/241711 SIGNED BY: MIRIAN OWUSU MD SIGNED DATE/TIME: 07/05/241711 CC: Discharged With: Self Critical Care Note Critical Care Time?: Yes (45 min-critical care time only) I personally scribed for ARTURO WHITT DO ([email or web address]) on 07/05/24 at 16:20. Electronically submitted by Ara Wilson ([email or web address]). I personally scribed for ARTURO WHITT DO ([email or web address]) on 07/05/24 at 17:37. Electronically submitted by Ara Wilson ([email or web address]). I personally scribed for ARTURO WHITT DO ([email or web address]) on 07/05/24 at 19:49. Electronically submitted by Melissa Calhoun ([email or web address]). ARTURO WHITT DO Jul 05, 2024 16:20
[2024-07-05 16:48] LABS: Basophils # (auto) 0.1 10 ^3/uL (0-0.2); Basophils % (auto) 0.4 % (0.0-2.0); Eosinophils # (auto) 0.1 10 ^3/uL (0-0.8); Eosinophils % (auto) 0.7 % (0.0-7.0); Hematocrit 43.9 % (41.0-53.0); Lymphocytes # (auto) 1.4 10 ^3/uL (0.4-5.4); Lymphocytes % (auto) 10.2 % (10.0-50.0); Mean Corpuscular Hemoglobin 30.9 pg (28.0-32.0); Mean Corpuscular Hgb Conc. 34.1 g/dL (32.0-36.0); Mean Corpuscular Volume 90.5 fL (80.0-100.0); Monocytes # (auto) 0.8 10 ^3/uL (0-1.3); Monocytes % (auto) 6.1 % (0.0-12.0); Neutrophils # (auto) 11.3 10 ^3/uL (1.6-8.6); Neutrophils % (auto) 82.6 % (37.0-80.0); Platelet Count (auto) 231 10^3/uL (140-450); Red Blood Cells 4.85 10^6/uL (4.5-5.90); Red Cell Distribution Width 12.7 % (11.8-14.3); White Blood Cell 13.7 10^3/uL (4.4-10.8)
[2024-07-05 17:06] LABS: Alanine Aminotransferase 24 U/L (7-40); Albumin 4.1 g/dL (3.2-4.8); Alkaline Phosphatase 68 U/L (46-116); Anion Gap 8 (5-15); Aspartate Aminotransferase 22 U/L (13-40); BUN/Creatinine Ratio 21.9 (10.0-20.0); Bilirubin, Total 0.5 mg/dL (0.2-1.0); CRP High Sensitivity 0.77 mg/dL (<1.0); Calcium 9.1 mg/dL (8.7-10.4); Carbon Dioxide 25 mmol/L (20-31); Potassium 4.6 mmol/L (3.5-5.1); Total Protein 6.6 g/dL (5.7-8.2)
[2024-07-05 17:08] LABS: Blood Urea Nitrogen 41 mg/dL (9-23); Chloride 95 mmol/L (98-107); Sodium 128 mmol/L (136-145)
[2024-07-05 17:09] LABS: Glucose 465 mg/dL (74-106); Lactic Acid w/Reflex 2.2 mmol/L (0.4-2.0)
--- NOTE | 2024-07-05 17:14 | DVH ---
CLINICAL INDICATION: Diabetic foot wound TECHNIQUE: 3 radiographic views of the left foot were obtained. Comparison: None FINDINGS/IMPRESSION: Postsurgical changes are visualized in the 1st digit from amputation.
[2024-07-05] MEDS: PIPERACILLIN-TAZOB 3.375GM 100 ML IV ONE (17:44)
[2024-07-05] MEDS: VANCOMYCIN 1GM/200ML PM 250 ML IV ONE (17:45)
[2024-07-05] MEDS: InsuLIN REG 1unit/0.01ml Soln (100units/ml) IV ONE (17:45)
[2024-07-05] MEDS: SODIUM CHLORIDE 0.9% 1,000 ML IV ONE ×2 (17:46→20:35)
[2024-07-05] MEDS: ACETAMINOPHEN 325 MG TAB PO ONE (18:05)
[2024-07-05 18:19] LABS: Erythrocyte Sedimentation Rate 18 mm/hr (0-20)
[2024-07-05 20:39] VITALS: PULSE 78; RESP 20; O2SAT 98
[2024-07-05 21:44] LABS: Urine Bacteria None Seen /hpf (None Seen)
[2024-07-05 21:56] LABS: Urine Amorphous Crystal FEW /hpf (None Seen); Urine Blood TRACE /uL (Negative); Urine Clarity Clear (Clear); Urine Color Light-Yellow (Yellow); Urine Protein, UAD 2+ (Negative); Urine Specific Gravity 1.014 (1.001-1.035); Urine Squamous Epithelial Cell FEW /hpf (<5); Urine Urobilinogen Normal (Negative); Urine WBC 1 /HPF (0-3); Urine pH 5.5 (5.0-9.0)
[2024-07-05] MEDS ORDERED: ONDANSETRON HCL 4 MG/2 ML VIAL IV PRN (22:30)
[2024-07-05] MEDS ORDERED: DEXTROSE (50%) 50ML SYRG IV PRN (22:30)
[2024-07-05] MEDS ORDERED: VANCOMYCIN PER PHARMACY 0 MG IV SCH (22:30)
[2024-07-05] MEDS ORDERED: PIPERACILLIN-TAZOB 3.375GM 100 ML IV ONE (22:30)
[2024-07-05] MEDS ORDERED: ACETAMINOPHEN 325 MG TAB PO PRN (22:30)
--- NOTE | 2024-07-05 22:32 | DVHHPRES ---
History of Present Illness Resident Creating Document: KRISTEN LOGAN RESIDENT History of Present Illness Martín CONCEPCION 49-year-old male patient who presents to ED with chief complaint of foot pain and nonhealing wound on lateral aspect of left foot for the past 4- 3 months associated with chills, with increase of excruciating pain which prompted his visit to the ED. during ED stay he was diagnosed with fever (100.8 F), leukocytosis and presented increased lactic acid. Denies chest pain, dyspnea, palpitation, syncope, nausea, vomiting, diarrhea, constipation, abdominal pain, bleeding, recent travel, sick contacts and motor or sensory deficits. 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 Family history: Diabetes, hypertension in parents. Social history: Lives in [place] alone (next of kin would be daughter who lives in [place]). Currently vapes and smokes marijuana ex tobacco abuse ([id number] pack-year history) quit tobacco for 10 years in. He drinks alcohol3 times a week and each time he drinks he drinks approximately six beers. Ex methamphetamine abuse, quit four years ago. Denies current tobacco and other drug abuse Allergies: Denies Home medication: Metformin 850 mg p.o. b.i.d., gabapentin 800 mg p.o. daily, lisinopril 20 mg p.o. daily, metoprolol 50 mg p.o. daily, amlodipine 10 mg p.o. daily, atorvastatin 10 mg p.o. daily, vitamin-D, (he was given hydrochlorothia zide but he did not take it) Patient seen and examined at bedside. Currently has no new complaints. Past Medical History Per HPI Past Surgical History Per HPI Family History Per HPI Past Social History Per HPI Review of Systems Review of Systems Per HPI Allergies: Coded Allergies: NO KNOWN ALLERGIES (Unverified , 09/13/18) Exam Vital Signs Vital Signs Date Time Temp Pulse Resp B/P (MAP) Pulse Ox O2 Delivery O2 Flow Rate FiO2 07/05/24 20:39 78 20 98 Room Air* 0 21 07/05/24 19:05 98.8 07/05/24 17:51 122/74 (90) Exam Patient lying in bed, in no acute distress General: Lucid, afebrile, mucosae are moist Cardiovascular: Normal S1 and S2. No murmurs, gallops or rubs Respiratory: Normal ventilation mechanics. Clear lung sounds on auscultation Abdomen: Soft, nontender, no organomegaly, normal bowel sounds MSK/skin: Mobilizes 4 limbs. Skin is dry and warm. Left leg greater than right leg per meter, has pitting edema on left leg. Presents ulcer on lateral side of left foot, no discharge or no pus present on evaluation. Presents surgical site of left hallux and 2nd digit with no signs of infection. Has warmth on palpation. Right foot is within normal limits. Neurological: Oriented in 3 spheres. No motor no sensitive deficits. Pupils are isocoric and reactive Labs/Xrays Labs Test 07/05/24 21:14 07/05/24 18:53 07/05/24 18:00 07/05/24 16:30 Range/Units Urine Color Light-yellow Yellow Urine Clarity Clear Clear Urine pH 5.5 5.0-9.0 Urine Specific Reese 1.014 1.001-1.035 Urine Protein 2+ H Negative Urine Ketones Negative Negative Urine Blood Trace H Negative /uL Urine Nitrite Negative Negative Urine Bilirubin Negative Negative Urine Urobilinogen Normal Negative mg/dL Urine Leukocyte Esterase Negative Negative /uL Urine RBC 1 0 - 3 /hpf Urine Microscopic WBC 1 0-3 /HPF Urine Squamous Epithelial Cells Few <5 /hpf Urine Amorphous Crystals Few None Seen /hpf Urine Bacteria None seen None Seen /hpf Urine Glucose 4+ H Normal mg/dL POC Glucose 307 H 70-106 mg/dl Lactic Acid Level 2.5 *H 0.4-2.0 mmol/L White Blood Count 13.7 H 4.4-10.8 10^3/uL Red Blood Count 4.85 4.5-5.90 10^6/uL Hemoglobin 15.0 13.5-17.5 g/dL Hematocrit 43.9 41.0-53.0 % Mean Corpuscular Volume 90.5 80.0-100.0 fL Mean Corpuscular Hemoglobin 30.9 28.0-32.0 pg Mean Corpuscular Hemoglobin Concent 34.1 32.0-36.0 g/dL Red Cell Distribution Width 12.7 11.8-14.3 % Platelet Count 231 140-450 10^3/uL Mean Platelet Volume 7.0 6.9-10.8 fL Neutrophils (%) (Auto) 82.6 H 37.0-80.0 % Lymphocytes (%) (Auto) 10.2 10.0-50.0 % Monocytes (%) (Auto) 6.1 0.0-12.0 % Eosinophils (%) (Auto) 0.7 0.0-7.0 % Basophils (%) (Auto) 0.4 0.0-2.0 % Neutrophils # (Auto) 11.3 H 1.6-8.6 10 ^3/uL Lymphocytes # (Auto) 1.4 0.4-5.4 10 ^3/uL Monocytes # (Auto) 0.8 0-1.3 10 ^3/uL Eosinophils # (Auto) 0.1 0-0.8 10 ^3/uL Basophils # (Auto) 0.1 0-0.2 10 ^3/uL Nucleated Red Blood Cells 0.0 % Erythrocyte Sedimentation Rate 18 0-20 mm/hr Sodium Level 128 L 136-145 mmol/L Potassium Level 4.6 3.5-5.1 mmol/L Chloride Level 95 L 98-107 mmol/L Carbon Dioxide Level 25 20-31 mmol/L Anion Gap 8 5-15 Blood Urea Nitrogen 41 H 9-23 mg/dL Creatinine 1.87 H 0.700-1.30 mg/dL Glomerular Filtration Rate Calc 43 >90 mL/min BUN/Creatinine Ratio 21.9 H 10.0-20.0 Serum Glucose 465 *H 74-106 mg/dL Calcium Level 9.1 8.7-10.4 mg/dL Total Bilirubin 0.5 0.2-1.0 mg/dL Aspartate Amino Transferase (AST) 22 13-40 U/L Alanine Aminotransferase (ALT) 24 7-40 U/L Alkaline Phosphatase 68 46-116 U/L C-Reactive Protein High Sensitivity 0.77 <1.0 mg/dL B-Type Natriuretic Peptide 55.70 0-100 pg/mL Total Protein 6.6 5.7-8.2 g/dL Albumin 4.1 3.2-4.8 g/dL Beta-Hydroxybutyric Acid 0.084 < 0.4 mmol/L Assessment/Plan Assessment/Plan Assessment: Sepsis secondary to cellulitis Diabetic foot with cellulitis EMILIANO hemodynamically mediated Rule out osteomyelitis DVT on left lower limb Hypertension Diabetes History of diabetic foot status post amputation in two opportunities Vitamin-D deficiency Plan: Patient is currently under empiric IV antibiotic (Zosyn and vancomycin). Indicated IV fluids. Ordered wound counseled and Podiatry evaluation. Ordered panculture (blood, urine and wound), pending Venous ultrasound of left limb shows nonocclusive DVT on popliteal vein. Currently on therapeutical enoxaparin. Goals of care discussed with patient for over 18 minutes: Full code status Discussed plan with Dr. Palma, patient and nurses: Patient under empiric IV antibiotic, on IV fluids, and with therapeutic enoxaparin. Pending evaluation by Podiatry specialist. Plan discussed with: Patient, Other (Nurses) My Orders Orders - KRISTEN LOGAN RESIDENT Procedure Category Date Status Time Admit ADMIT 07/05/24 Verified 22:21 Code Status CODE 07/05/24 Verified 22:21 Vital Signs [facility] 07/05/24 Verified 22:21 Review Orders With [facility] 07/05/24 Verified Adm. 22:21 Consistent DIET 07/06/24 Verified Carb(Ccho)Diabetes Breakfast Acetaminophen Tablet PHA 07/05/24 Verified (Tylenol Tablet) 22:30 Notify Md Of Changes [facility] 07/05/24 Verified From Base 22:21 Advance Directive TAMAR 07/05/24 Verified 22:21 Echo 2d Mode Cardiac US 07/05/24 Verified DOP 22:21 Patient Condition ORDERS 07/05/24 Verified 22:21 Allergies TAMAR 07/05/24 Verified 22:21 Ondansetron Hcl PHA 07/05/24 Verified (Zofran) 22:30 Morphine 2mg Iv Q4hprn PHA 07/05/24 Verified 22:30 Lovenox 40mg PHA 07/06/24 Verified 10:00 Oxygen By Nasal RT 07/05/24 Verified Cannula 22:21 Stat Ekg For Chest TAMAR 07/05/24 Verified Pain 22:21 Notify Of Changes [facility] 07/05/24 Verified From Base 22:21 Chip Unloader For [facility] 07/05/24 Verified 24 Hours 22:21 Emergency Dysrhythmia [facility] 07/05/24 Verified Protocol 22:21 Rhythm Strips Once TAMAR 07/05/24 Verified Every Shift 22:21 Bilat Upper Ext Art US 07/05/24 Verified Duplex 22:21 Lt Lower Dvt US 07/05/24 Verified 22:21 * Wound Consult CONS 07/05/24 Verified Wound Culture W/ Gs [facility]ON 07/05/24 Verified 22:21 Urine Bacterial AARON 07/05/24 Verified Culture 22:21 Complete Blood Count LAB 07/06/24 Verified 04:00 Comprehensive LAB 07/06/24 Verified Metabolic Panel 04:00 Osmolality, Serum LAB 07/05/24 Verified 22:21 Vitamin D, 25-Hydroxy LAB 07/05/24 Verified 22:21 Vitamin B12 LAB 07/05/24 Verified 22:21 Thyroid Stimulating LAB 07/05/24 Verified Hormone 22:21 PTPTT LAB 07/05/24 Verified 22:21 Phosphorus LAB 07/05/24 Verified 22:21 Magnesium LAB 07/05/24 Verified 22:21 Lipid Panel LAB 07/05/24 Verified 22:21 Lactic Acid W/ Reflex LAB 07/05/24 Verified Order 22:21 Hemoglobin A1c LAB 07/05/24 Verified 22:21 Drug Screen LAB 07/05/24 Verified 22:21 Vancomycin Per PHA 07/05/24 Verified Pharmacy 22:30 Zosyn Extended PHA 07/06/24 Verified Infusion 06:00 Zosyn Extended PHA 07/05/24 Verified Infusion 22:30 Glucose Blood PHA 07/06/24 Verified (Accu-Chek Comfort 00:00 Agressive Insulin Ss PHA 07/06/24 Verified 00:00 Dextrose 50% Syringe PHA 07/05/24 Verified 22:30 Date of Service: Jul 05, 2024 Billing Provider: AMMY PALMA MD Common Visit Codes: [id number] INP/OBS CARE (HIGH) KRISTEN LOGAN RESIDENT Jul 05, 2024 22:31 AMMY PALMA MD Jul 06, 2024 19:12
[2024-07-05 22:56] LABS: Cannabinoid Screen, Urine Neg (NEGATIVE)
[2024-07-05 22:57] LABS: Amphetamine Screen, Urine Neg (NEGATIVE); Barbiturate Scree,Urine Neg (NEGATIVE); Benzodiazephine Screen, Urine Neg (NEGATIVE); Cocaine Screen, Urine Neg (NEGATIVE); Opiate Scree,Urine Neg (NEGATIVE); Phencyclidine Screen, Urine Neg (NEGATIVE)
[2024-07-05 23:32] LABS: Phosphorus 3.3 mg/dL (2.4-5.1)
--- NOTE | 2024-07-05 23:36 | DVH ---
Left lower extremity venous duplex Clinical History: Left lower limb swelling Comparison: None Technique: Duplex Doppler evaluation of the deep venous system of the left lower extremity from the common femor al vein to the popliteal vein including color Doppler and spectral/pulsed waveform analysis was perfo rmed. Findings: 1. There is good flow 2. and waveform 3. in the left common femoral 4. vein and left 5. greater saphenous 6. vein. 7. There is good flow 8. compression waveform 9. in the left superficial 10. femoral 11. vein superiorly. 12. There is good flow 13. and compression in the mid left 14. superficial 15. femoral 16. vein 17. . 18. There is good flow 19. but lack 20. of compression 21. and augmentation in the left popliteal 22. vein. 23. There is good 24. flow in the left posterior tibialis 25. vein 26. . 27. IMPRESSION: 1. Non occluding thrombus left popliteal vein
[2024-07-05 23:49] LABS: INR 0.99 (0.9-1.15); Partial Thromboplastin Time 28.9 SEC (24.5-34.5); Prothrombin Time 10.5 sec (9.3-11.8)
[2024-07-05 23:50] LABS: Magnesium 1.3 mg/dL (1.6-2.6)
--- NOTE | 2024-07-05 23:51 | DVH ---
Left Lower Extremity Arterial Duplex Clinical History: Rule out PAD Comparison: None Technique: Duplex Doppler evaluation including color Doppler and spectral/pulsed waveform analysis of the lower extremity arteries was performed. Findings: Peak systolic velocities are as follows: MANAGER GRANT 132 cm/s Deep femoral 7.3 cm/s SFA proximal 143 cm/s SFA mid-portion 95 cm/s SFA distal 85 cm/s Popliteal 9 cm/s Posterior tibial 118 cm/s Dorsalis pedis 113 cm/s The waveforms are triphasic with diastolic flow. IMPRESSION: 1. No hemodynamically significant stenosis based on peak systolic velocity criteria identified in the left lower extremity. REFERENCE VALUES, [facility]) vascular Imaging Lab Criteria: Peak systolic velocity ranges (in cm/sec) are as follows: <150 cm/s - <20 % stenosis 150-200 cm/s - 20-49% stenosis 200-300 cm/s - 50-75% stenosis >300 cm/s -> 75% stenosis
[2024-07-06] VITALS (9 sets, daily range): BP systolic 121–173; BP diastolic 64–91; PULSE 71–78; RESP 16–19; TEMP 97.5–98.2; O2SAT 94–99
--- NOTE | 2024-07-06 00:22 | DVH ---
CHEST RADIOGRAPH Indication: SOB Technique: Single frontal view of the chest was obtained COMPARISON: None FINDINGS: Lines and Tubes: None Lungs: Clear Pleura: No effusion. No pneumothorax. Cardiomediastinal contours: Unremarkable Bones: Unremarkable IMPRESSION: No abnormality demonstrated.
[2024-07-06] MEDS: VANCOMYCIN 1GM/200ML PM 200 ML IV SCH (01:00)
[2024-07-06] MEDS: InsuLIN REG 1unit/0.01ml Soln (100units/ml) SC SCH (01:16)
[2024-07-06] MEDS: ACCU-CHEK COMFORT CURVE STRIP VI SCH (01:16)
[2024-07-06] MEDS: ENOXAPARIN SOD 100 MG/1 ML SYRINGE SC ONE (01:45)
[2024-07-06] MEDS: ERGOCALCIFEROL 50,000 UNIT(1.25MG) CAP PO SCH (05:30)
[2024-07-06] MEDS: PIPERACILLIN-TAZOB 3.375GM 100 ML IV SCH (06:00)
[2024-07-06 08:25] LABS: Basophils # (auto) 0.1 10 ^3/uL (0-0.2); Basophils % (auto) 0.5 % (0.0-2.0); Eosinophils # (auto) 0.2 10 ^3/uL (0-0.8); Eosinophils % (auto) 1.6 % (0.0-7.0); Hematocrit 40.3 % (41.0-53.0); Hemoglobin 13.8 g/dL (13.5-17.5); Lymphocytes # (auto) 1.9 10 ^3/uL (0.4-5.4); Lymphocytes % (auto) 16.9 % (10.0-50.0); Mean Corpuscular Hemoglobin 31.1 pg (28.0-32.0); Mean Corpuscular Hgb Conc. 34.2 g/dL (32.0-36.0); Mean Corpuscular Volume 90.8 fL (80.0-100.0); Monocytes # (auto) 1.1 10 ^3/uL (0-1.3); Monocytes % (auto) 9.1 % (0.0-12.0); Neutrophils # (auto) 8.3 10 ^3/uL (1.6-8.6); Neutrophils % (auto) 71.9 % (37.0-80.0); Nucleated Red Blood Cells % 0.1 %; Platelet Count (auto) 210 10^3/uL (140-450); Red Blood Cells 4.44 10^6/uL (4.5-5.90); Red Cell Distribution Width 13.3 % (11.8-14.3); White Blood Cell 11.5 10^3/uL (4.4-10.8)
[2024-07-06 08:35] LABS: Alanine Aminotransferase 19 U/L (7-40); Albumin 3.8 g/dL (3.2-4.8); Alkaline Phosphatase 59 U/L (46-116); Anion Gap 9 (5-15); Aspartate Aminotransferase 14 U/L (13-40); BUN/Creatinine Ratio 23.8 (10.0-20.0); Bilirubin, Total 0.5 mg/dL (0.2-1.0); Calcium 8.7 mg/dL (8.7-10.4); Carbon Dioxide 25 mmol/L (20-31); Chloride 102 mmol/L (98-107); Potassium 3.9 mmol/L (3.5-5.1); Sodium 136 mmol/L (136-145); Total Protein 6.1 g/dL (5.7-8.2)
[2024-07-06 08:37] LABS: Blood Urea Nitrogen 35 mg/dL (9-23); Glucose 181 mg/dL (74-106)
[2024-07-06] MEDS ORDERED: ENOXAPARIN SOD 40 MG/0.4 ML SYRINGE SC SCH (10:00)
[2024-07-06] MEDS ORDERED: ERGOCALCIFEROL 50,000 UNIT(1.25MG) CAP PO SCH (10:45)
[2024-07-06] MEDS: SODIUM CHLORIDE 0.9% 1,000 ML IV SCH (11:04)
[2024-07-06] MEDS: PANTOPRAZOLE 40 MG TAB PO ONE (11:08)
[2024-07-06] MEDS: ENOXAPARIN SOD 100 MG/1 ML SYRINGE SC SCH (11:11)
[2024-07-06] MEDS: INSULIN LANTUS (GLARGINE) 1 /0.01ml (100units/ml) SC SCH (11:28)
--- NOTE | 2024-07-06 11:45 | DVHPNRES ---
Progress Note Date Seen: Jul 06, 2024 Resident Creating Document: SHANTEL MCCORD RESIDENT Medical Necessity Reason Pt with a Central, PICC or Fol: No Subjective Review of Systems Martín CONCEPCION 49-year-old male patient who presents to ED with chief complaint of foot pain and nonhealing wound on lateral aspect of left foot for the past 4- 3 months associated with chills, with increase of excruciating pain which prompted his visit to the ED. during ED stay he was diagnosed with fever (100.8 F), leukocytosis and presented increased lactic acid. Denies chest pain, dyspnea, palpitation, syncope, nausea, vomiting, diarrhea, constipation, abdominal pain, bleeding, recent travel, sick contacts and motor or sensory deficits. 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 Family history: Diabetes, hypertension in parents. Social history: Lives in [place] alone (next of kin would be daughter who lives in [place]). Currently vapes and smokes marijuana ex tobacco abuse ([id number] pack-year history) quit tobacco for 10 years in. He drinks alcohol3 times a week and each time he drinks he drinks approximately six beers. Ex methamphetamine abuse, quit four years ago. Denies current tobacco and other drug abuse Allergies: Denies Home medication: Metformin 850 mg p.o. b.i.d., gabapentin 800 mg p.o. daily, lisinopril 20 mg p.o. daily, metoprolol 50 mg p.o. daily, amlodipine 10 mg p.o. daily, atorvastatin 10 mg p.o. daily, vitamin-D, (he was given hydrochlorothiazide but he did not take it) Patient seen and examined at bedside. Complaining of left foot pain with nonhealing ulcer which started with callus. Initially complaining of fever and chill however no complaint today. Receiving IV fluid, antibiotics. Objective vital signs Vital Sign Date Time Temp Pulse Resp B/P (MAP) Pulse Ox O2 Delivery O2 Flow Rate FiO2 07/06/24 09:00 97.7 75 18 133/74 (93) 98 97.7 07/05/24 20:39 Room Air* 0 21 Total Intake and Output 07/05/24 07/05/24 07/06/24 15:00 23:00 07:00 Intake Total 1350 ml 120 ml Balance 1350 ml 120 ml medications Current Medications Medications Dose Ordered Sig/Desirae Route Start Time Stop Time Status Last Admin Dose Admin Acetaminophen 650 mg Q6HP PRN PO 07/05/24 22:30 Ondansetron HCl 4 mg Q4HP PRN IV 07/05/24 22:30 Morphine Sulfate 2 mg Q4HPRN PRN IV 07/05/24 22:30 Vancomycin HCl 0 ml @ 0 mls/hr UD IV 07/05/24 22:30 Piperacillin Sod/ Tazobactam Sod 100 ml @ 25 mls/hr Q8HR IV 07/06/24 06:00 07/06/24 06:00 25 MLS/HR Diagnostic Test (Pha) 1 strip IQ4HR 07/06/24 00:00 07/06/24 10:39 1 STRIP Insulin Human Regular IQ4HR SC 07/06/24 00:00 07/06/24 10:39 12 UNITS Dextrose 50 ml UD PRN IV 07/05/24 22:30 Enoxaparin Sodium 90 mg Q12HR SC 07/06/24 10:00 07/06/24 11:11 90 MG Ergocalciferol 50,000 unit Q7D PO 07/06/24 05:30 07/06/24 05:30 50,000 UNIT Insulin Glargine 15 units DAILY@1000 SC 07/06/24 10:00 07/06/24 11:28 15 UNITS Pantoprazole Sodium 40 mg DAILY@0600 PO 07/07/24 06:00 Sodium Chloride 1,000 ml @ 125 mls/hr Q8H IV 07/06/24 09:45 07/06/24 11:04 125 MLS/HR Lisinopril 20 mg DAILY PO 07/07/24 10:00 Examination General Appearance: Alert, Oriented X3, Cooperative, No acute distress HEENT: EOMI Respiratory: Clear to auscultation, Normal air movement Cardiovascular: Regular rate, Normal S1, Normal S2 Abdominal: Normal bowel sounds Extremities: No cyanosis, No edema, Normal pulses, No tenderness/swelling Skin: No rashes, No breakdown Neuro: Normal gait, Normal speech, Strength at 5/5 X4 ext, Normal tone, Sensation intact, Cranial nerves 3-12 NL, Reflexes 2+ Psych/Mental Status: Mental status NL, Mood NL laboratory and microbiology Laboratory Tests 07/06/24 07:38 Test 07/06/24 07:38 Range/Units Serum Glucose 181 #H 74-106 mg/dL Problem List/Assessment/Plan Problem List/Assessment/Plan Sepsis secondary to cellulitis Diabetic foot with cellulitis EMILIANO hemodynamically mediated Rule out osteomyelitis DVT on left lower limb Hypertension Diabetes mellitus type 2 HbA1c 10.9 History of amputation left of 1st and 2nd toe Vitamin-D deficiency Plan: Patient is currently under empiric IV antibiotic (Zosyn and vancomycin). IV fluid normal saline at 125 mL/hour Pending wound culture, urine culture, blood culture Wound care Pending podiatry consultation Venous ultrasound of left limb shows nonocclusive DVT on popliteal vein. Therapeutic Lovenox PUD prophylaxis with Protonix Goals of care discussed with greater than 24 minutes, full code status. Plan discussed with Dr. Palma Plan discussed with: Patient, Other (RN) My Orders My Orders Orders - SHANTEL MCCORD Procedure Category Date Status Time Pantoprazole Tablet PHA 07/07/24 In Process (Protonix Tablet) 06:00 Sodium Chloride 0.9% PHA 07/06/24 In Process 09:45 Lisinopril Tablet PHA 07/07/24 In Process (Zestril Tablet) 10:00 Date of Service: Jul 06, 2024 Billing Provider: AMMY PALMA MD Common Visit Codes: [id number] INP/OBS CARE(HIGH) SHANTEL MCCORD Jul 06, 2024 11:45 AMMY PALMA MD Jul 06, 2024 19:22
[2024-07-06] MEDS ORDERED: GABA-339 PO (13:10)
[2024-07-06] MEDS ORDERED: METO-158 PO (13:10)
[2024-07-06] MEDS ORDERED: HYDR25TA4 PO (13:10)
[2024-07-06] MEDS ORDERED: AMLO1TAB22 PO (13:10)
--- NOTE | 2024-07-06 13:53 | DVHSR ---
APPROVED REPORT EXAM: Two-dimensional and M-mode echocardiogram with Doppler and color Doppler. Blood Pressure: 135/75 mmHg INDICATION Leg swelling RISK FACTORS Height: 66, Weight: 207 DIMENSIONS LVDd4.8 (3.8-5.7cm)LA (2D)4.5 (1.9-4.0cm)Aortic Root3.7 (2.0-3.7cm) LVDs3.4 (2.5-4.0cm)LA (MM) (1.9-4.0cm)Aortic Cusp Exc2.0 (1.5-2.0cm) EF (%) 55.0 (55-70%)Rt. Atrium3.6 (1.9-4.0cm)Asc. Aorta cm IVSd1.4 (0.7-1.1cm)RV (D) (1.8-2.4cm) PWd1.5 (0.7-1.1cm) Mitral Valve MitralMitral Stenosis E wave0.81m/sMV Mean GR.2mmHg A wave0.92m/sMV Peak GR.3mmHg E/A ratio0.92D MVAcm2 DECEL [id number] 1/2 [id number] IVRTmsDop MVA3.53cm2 Aortic Valve Aortic ValveAortic Stenosis V11.08m/Benjamin Mean GR.4mmHg V21.41m/Benjamin Peak GR.8mmHg LVOT Diameter2.2 (1.8-2.4cm)Doppler AVA2.91cm2 Pulmonic Valve V20.90m/s Tricuspid Valve TR Velocity2.51m/s [id number] Other Information Technically limited study due to body habitus. Conclusion lvef 60% by viusal estimate normal rv function no severe valve abnormaliteis noted left atrium enlarged
[2024-07-06] MEDS: MAGNESIUM SULFATE 1GM/100ML 100 ML IV SCH (14:36)
--- NOTE | 2024-07-06 14:47 | DVHINCON2 ---
Date Seen: Jul 06, 2024 Reason for Consultation Left foot wound History of Present Illness Martín CONCEPCION 49-year-old male patient who presents to ED with chief complaint of foot pain and nonhealing wound on lateral aspect of left foot for the past 4- 3 months associated with chills, with increase of excruciating pain which prompted his visit to the ED. during ED stay he was diagnosed with fever (100.8 F), leukocytosis and presented increased lactic acid. Denies chest pain, dyspnea, palpitation, syncope, nausea, vomiting, diarrhea, constipation, abdominal pain, bleeding, recent travel, sick contacts and motor or sensory deficits. Past Medical History See H&P Family History: Diabetes mellitus FH: myocardial infarction FH: prostate cancer Hypertension Allergies: Coded Allergies: NO KNOWN ALLERGIES (Unverified , 09/13/18) Home Meds Active Scripts Cephalexin Monohydrate (Cephalexin) 500 Mg Cap, 1 CAP PO QID, #32 CAP Prov:RODO WOOD 07/10/23 Triamcinolone Acetonide (Triamcinolone Acetonide) 0.025 % Cre, 1 APPLIC TOP BID, #30 GRAMS Prov:RODO WOOD 07/10/23 Methylprednisolone (Medrol Dosepak) 4 Mg Jaime, 4 MG PO UD, #21 TAB UAD Prov:RODO WOOD 07/10/23 Glipizide (Glipizide) 5 Mg Tab, 1 TAB PO BID for 30 Days, #60 TAB 1 Refill Prov:JAMILA MCLEOD MD 08/31/19 Metformin Hydrochloride (Metformin Hcl) 850 Mg Tab, 1 TAB PO BID for 30 Days, #60 TAB 1 Refill Prov:JAMILA MCLEOD MD 08/31/19 Cephalexin (Keflex) 500 Mg Cap, 1 CAP PO BID for 14 Days, #28 CAP Prov:JAMILA MCLEOD MD 08/31/19 Lisinopril (Lisinopril) 20 Mg Tab, 20 MG PO DAILY for 30 Days, #30 TAB 1 Refill Prov:JAMILA MCLEOD MD 08/31/19 Reported Medications Amlodipine Besylate (Amlodipine Besylate) 5 Mg Tab, 10 MG PO DAILY for 30 Days, MG 07/06/24 Metoprolol Tartrate (Metoprolol Tartrate) 50 Mg Tab, 50 MG PO for 30 Days, MG 07/06/24 Hydrochlorothiazide (Hydrochlorothiazide) 25 Mg Tab, 50 MG PO, TAB 07/06/24 Gabapentin (Gabapentin) 600 Mg Tab, 800 MG PO for 30 Days, MG 07/06/24 Current Medications Current Medications Medications (Trade) Dose Ordered Sig/Desirae Route PRN Reason Start Time Stop Time Status Last Admin Acetaminophen (Tylenol Tablet) 650 mg Q6HP PRN PO PAIN SCALE 1-3 OR TEMP>100.4 07/05/24 22:30 Ondansetron HCl (Zofran) 4 mg Q4HP PRN IV NAUSEA / VOMITING 07/05/24 22:30 Morphine Sulfate 2 mg Q4HPRN PRN IV SEVERE PAIN (7-10 PAIN SCALE) 07/05/24 22:30 Enoxaparin Sodium (Lovenox) 40 mg DAILY SC 07/06/24 10:00 07/06/24 00:07 DC Vancomycin HCl 0 ml @ 0 mls/hr UD IV 07/05/24 22:30 Piperacillin Sod/ Tazobactam Sod 100 ml @ 25 mls/hr Q8HR IV 07/06/24 06:00 07/06/24 06:00 Diagnostic Test (Pha) (Accu-Chek Comfort Curve T) 1 strip IQ4HR 07/06/24 00:00 07/06/24 12:00 Insulin Human Regular (InsuLIN R) IQ4HR SC 07/06/24 00:00 07/06/24 10:39 Dextrose 50 ml UD PRN IV Blood Sugar LESS THAN 60 07/05/24 22:30 Vancomycin HCl 200 ml @ 100 mls/hr Q2H IV 07/05/24 23:00 07/06/24 02:59 DC 07/06/24 01:17 Enoxaparin Sodium (Lovenox) 90 mg Q12HR SC 07/06/24 10:00 07/06/24 11:11 Ergocalciferol (Vitamin D 50,000 Unit) 50,000 unit Q7D PO 07/06/24 05:30 07/06/24 05:30 Magnesium Sulfate/ Dextrose 100 ml @ 100 mls/hr Q1HR IV 07/06/24 06:00 07/06/24 07:59 DC 07/06/24 14:36 Insulin Glargine (Lantus) 15 units DAILY@1000 SC 07/06/24 10:00 07/06/24 11:28 Pantoprazole Sodium (Protonix Tablet) 40 mg DAILY@0600 PO 07/07/24 06:00 Sodium Chloride 1,000 ml @ 125 mls/hr Q8H IV 07/06/24 09:45 07/06/24 11:04 Ergocalciferol (Vitamin D 50,000 Unit) 50,000 unit Q7D PO 07/06/24 10:45 07/06/24 10:44 DC Lisinopril (Zestril Tablet) 20 mg DAILY PO 07/07/24 10:00 Vital Signs Vital Signs Date Time Temp Pulse Resp B/P (MAP) Pulse Ox O2 Delivery O2 Flow Rate FiO2 07/06/24 12:55 97.5 71 18 173/91 (118) 99 97.5 07/06/24 12:40 Room Air* 0 21 Physical Exam Dermatological: Skin is dry with mild erythema and some maceration around the wound site No gross deformities noted Mild non-pitting edema present bilaterally Wound: Location: Left plantar foot wound Measures: 1 cm in length, 1 cm in width, and 1 cm in depth. Depth: Full thickness Base: Mix of granulation/slough Drainage: None Odor: None Periwound: Macerated Vascular: Dorsalis pedis and posterior tibial pulses are 1+ bilaterally Capillary refill is under 2 seconds Skin temperature is warm bilaterally Neurologic: Protective sensation is absent on the plantar forefoot bilaterally Monofilament testing reveals decreased sensation in multiple plantar sites Musculoskeletal: Range of motion at the ankle and MTP joints is within normal limits. Strength is 5/5 in all tested muscle groups. Gait is antalgic due to offloading of the affected limb. Labs/Diagnostic Data Labs Test 07/06/24 13:01 07/06/24 07:38 07/05/24 22:35 07/05/24 21:14 Range/Units POC Glucose 131 H 70-106 mg/dl White Blood Count 11.5 H 4.4-10.8 10^3/uL Red Blood Count 4.44 L 4.5-5.90 10^6/uL Hemoglobin 13.8 13.5-17.5 g/dL Hematocrit 40.3 L 41.0-53.0 % Mean Corpuscular Volume 90.8 80.0-100.0 fL Mean Corpuscular Hemoglobin 31.1 28.0-32.0 pg Mean Corpuscular Hemoglobin Concent 34.2 32.0-36.0 g/dL Red Cell Distribution Width 13.3 11.8-14.3 % Platelet Count 210 140-450 10^3/uL Mean Platelet Volume 7.0 6.9-10.8 fL Neutrophils (%) (Auto) 71.9 37.0-80.0 % Lymphocytes (%) (Auto) 16.9 10.0-50.0 % Monocytes (%) (Auto) 9.1 0.0-12.0 % Eosinophils (%) (Auto) 1.6 0.0-7.0 % Basophils (%) (Auto) 0.5 0.0-2.0 % Neutrophils # (Auto) 8.3 1.6-8.6 10 ^3/uL Lymphocytes # (Auto) 1.9 0.4-5.4 10 ^3/uL Monocytes # (Auto) 1.1 0-1.3 10 ^3/uL Eosinophils # (Auto) 0.2 0-0.8 10 ^3/uL Basophils # (Auto) 0.1 0-0.2 10 ^3/uL Nucleated Red Blood Cells 0.1 % Sodium Level 136 # 136-145 mmol/L Potassium Level 3.9 3.5-5.1 mmol/L Chloride Level 102 98-107 mmol/L Carbon Dioxide Level 25 20-31 mmol/L Anion Gap 9 5-15 Blood Urea Nitrogen 35 H 9-23 mg/dL Creatinine 1.47 H 0.700-1.30 mg/dL Glomerular Filtration Rate Calc 57 >90 mL/min BUN/Creatinine Ratio 23.8 H 10.0-20.0 Serum Glucose 181 #H 74-106 mg/dL Serum Osmolality 301 H 278-298 mOsm/kg Calcium Level 8.7 8.7-10.4 mg/dL Total Bilirubin 0.5 0.2-1.0 mg/dL Aspartate Amino Transferase (AST) 14 13-40 U/L Alanine Aminotransferase (ALT) 19 7-40 U/L Alkaline Phosphatase 59 46-116 U/L Total Protein 6.1 5.7-8.2 g/dL Albumin 3.8 3.2-4.8 g/dL Random Vancomycin Level 16.8 H 5-10 ug/mL Prothrombin Time 10.5 9.3-11.8 sec Prothrombin Time INR 0.99 0.9-1.15 Activated Partial Thromboplast Time 28.9 24.5-34.5 SEC Hemoglobin A1c 10.6 H <5.7 % A1C Lactic Acid Level 1.2 0.4-2.0 mmol/L Phosphorus Level 3.3 2.4-5.1 mg/dL Magnesium Level 1.3 L 1.6-2.6 mg/dL Triglycerides Level 103 < 150 mg/dL Cholesterol Level 156 < 200 mg/dL LDL Cholesterol 92 < 100 mg/dL HDL Cholesterol 45 40-59 mg/dL Vitamin B12 Level 437 211-911 pg/mL Vitamin D 25-Hydroxy 21.5 L 30.0-100 ng/mL Thyroid Stimulating Hormone (TSH) 1.15 0.55-4.78 uIU/mL Urine Color Light-yellow Yellow Urine Clarity Clear Clear Urine pH 5.5 5.0-9.0 Urine Specific [place] 1.014 1.001-1.035 Urine Protein 2+ H Negative Urine Ketones Negative Negative Urine Blood Trace H Negative /uL Urine Nitrite Negative Negative Urine Bilirubin Negative Negative Urine Urobilinogen Normal Negative mg/dL Urine Leukocyte Esterase Negative Negative /uL Urine RBC 1 0 - 3 /hpf Urine Microscopic WBC 1 0-3 /HPF Urine Squamous Epithelial Cells Few <5 /hpf Urine Amorphous Crystals Few None Seen /hpf Urine Bacteria None seen None Seen /hpf Urine Glucose 4+ H Normal mg/dL Urine Opiates Screen Neg NEGATIVE Urine Fentanyl Screen Neg NEGATIVE Urine Barbiturates Screen Neg NEGATIVE Urine Phencyclidine Screen Neg NEGATIVE Urine Amphetamines Screen Neg NEGATIVE Urine Benzodiazepines Screen Neg NEGATIVE Urine Cocaine Screen Neg NEGATIVE Urine Cannabinoids Screen Neg NEGATIVE Test 07/05/24 16:30 Range/Units Erythrocyte Sedimentation Rate 18 0-20 mm/hr C-Reactive Protein High Sensitivity 0.77 <1.0 mg/dL B-Type Natriuretic Peptide 55.70 0-100 pg/mL Beta-Hydroxybutyric Acid 0.084 < 0.4 mmol/L Problems(with codes): (1) Contact dermatitis and eczema (2) Allergic reaction (3) Sepsis (4) Leukocytosis (5) Diabetic foot ulcer (6) Uncontrolled diabetes mellitus (7) Hyperglycemia due to diabetes mellitus Plan/Recommendation ASSESSMENT: Patient is a 49 year old seen on the floor for a worsening ulcer PLAN: - The patients chart was reviewed, clinical findings were discussed with the patient, the etiologies of the conditions were discussed in detail, and a treatment plan was agreed to at this time, with both oral and written instructions provided. - reviewed advanced imaging - discussed with the patient does not need MRI at this point as do the pressure likely to over read for osteomyelitis - patient will need outpatient wound care - recommend dressing with Iodosorb, gauze, Kerlix, Mike - dressings need to be changed every other day as wound appears to be macerated from drainage - patient can continue IV antibiotics until vitals and labs were stable - after patient can be discharged home with p.o. antibiotics and follow up with me in clinic All questions were answered and concerns addressed to the patient's satisfaction. The patient was given the phone number to the clinic and was told how to make contact with the clinic should any concerns or questions arise. Patient understands that if any questions or concerns arise prior to the next appointment, we should be contacted immediately. FOLLOW-UP: Continue to follow while inpatient Plan discussed with: Patient Date of Service: Jul 06, 2024 Billing Provider: ROXANA GALLOWAY DPM Common Visit Codes: CONSULT ONLY Consultation Codes: [id number] CONSULT <80MIN ROXANA GALLOWAY DPM Jul 06, 2024 14:47
[2024-07-06] MEDS: MAGNESIUM SULFATE 1GM/100ML 100 ML IV ONE (15:48)
[2024-07-06] MEDS: CADEXOMER IODINE TOP SCH (20:00)
[2024-07-06] MEDS: APIXABAN 5 MG TAB PO SCH (22:28)
[2024-07-06] MEDS: MORPHINE SULFATE INJ 2 MG/ml SYRG IV PRN (22:46)
[2024-07-07 01:00] VITALS: BP 139/83; PULSE 77; RESP 20; TEMP 97.7; O2SAT 96
[2024-07-07] MEDS: PANTOPRAZOLE 40 MG TAB PO SCH (06:27)
[2024-07-07 08:00] VITALS: PULSE 74; RESP 16; O2SAT 97
[2024-07-07 08:27] LABS: Basophils # (auto) 0 10 ^3/uL (0-0.2); Basophils % (auto) 0.5 % (0.0-2.0); Eosinophils # (auto) 0.2 10 ^3/uL (0-0.8); Eosinophils % (auto) 2.3 % (0.0-7.0); Hematocrit 40.7 % (41.0-53.0); Hemoglobin 14.6 g/dL (13.5-17.5); Lymphocytes % (auto) 25.3 % (10.0-50.0); Mean Corpuscular Hgb Conc. 35.9 g/dL (32.0-36.0); Mean Corpuscular Volume 88.9 fL (80.0-100.0); Monocytes # (auto) 0.7 10 ^3/uL (0-1.3); Neutrophils # (auto) 5.1 10 ^3/uL (1.6-8.6); Neutrophils % (auto) 62.9 % (37.0-80.0); Nucleated Red Blood Cells % 0.1 %; Platelet Count (auto) 233 10^3/uL (140-450); Red Blood Cells 4.58 10^6/uL (4.5-5.90); Red Cell Distribution Width 13.1 % (11.8-14.3)
[2024-07-07 08:32] LABS: Anion Gap 8 (5-15); Carbon Dioxide 25 mmol/L (20-31); Chloride 106 mmol/L (98-107); Sodium 139 mmol/L (136-145)
[2024-07-07 08:33] LABS: Calcium 9.2 mg/dL (8.7-10.4)
[2024-07-07 08:38] LABS: BUN/Creatinine Ratio 18.7 (10.0-20.0); Blood Urea Nitrogen 20 mg/dL (9-23)
[2024-07-07 08:39] LABS: Glucose 132 mg/dL (74-106)
[2024-07-07] MEDS ORDERED: DOXY-346 PO (08:43)
[2024-07-07] MEDS ORDERED: APIX5TAB4 PO (08:43)
[2024-07-07] MEDS ORDERED: AUG875T PO (08:43)
[2024-07-07] MEDS ORDERED: LANC1MIS XX (08:47)
[2024-07-07] MEDS ORDERED: INSUINJ37 SC (08:47)
[2024-07-07] MEDS ORDERED: [UNRECOGNIZED DRUG - CODE] XX (08:47)
[2024-07-07 08:48] VITALS: BP 148/86; PULSE 74; RESP 16; TEMP 98.1; O2SAT 97
[2024-07-07] MEDS: LISINOPRIL 20 MG TAB PO SCH (09:15)
[2024-07-07 09:46] VITALS: BP 148/86; PULSE 74; RESP 18; TEMP 98.1; O2SAT 97
[2024-07-07] MEDS ORDERED: BLOO1KIT60 XX (11:14)
[2024-07-07 12:37] VITALS: BP 157/90; PULSE 72; RESP 16; TEMP 98.3; O2SAT 97
--- NOTE | 2024-07-07 16:24 | DVHDSRES ---
Discharge Summary Date of Admission Resident Creating Document: SHANTEL MCCORD RESIDENT Jul 05, 2024 at 22:21 Date of Discharge: Jul 07, 2024 Admitting Diagnosis Left foot cellulitis Labs/Diagnostic Data: Laboratory Results Test 07/07/24 12:00 07/07/24 07:46 07/06/24 07:38 07/05/24 22:35 POC Glucose 241 mg/dl (70-106) White Blood Count 8.0 10^3/uL (4.4-10.8) Red Blood Count 4.58 10^6/uL (4.5-5.90) Hemoglobin 14.6 g/dL (13.5-17.5) Hematocrit 40.7 % (41.0-53.0) Mean Corpuscular Volume 88.9 fL (80.0-100.0) Mean Corpuscular Hemoglobin 32.0 pg (28.0-32.0) Mean Corpuscular Hemoglobin Concent 35.9 g/dL (32.0-36.0) Red Cell Distribution Width 13.1 % (11.8-14.3) Platelet Count 233 10^3/uL (140-450) Mean Platelet Volume 7.3 fL (6.9-10.8) Neutrophils (%) (Auto) 62.9 % (37.0-80.0) Lymphocytes (%) (Auto) 25.3 % (10.0-50.0) Monocytes (%) (Auto) 9.0 % (0.0-12.0) Eosinophils (%) (Auto) 2.3 % (0.0-7.0) Basophils (%) (Auto) 0.5 % (0.0-2.0) Neutrophils # (Auto) 5.1 10 ^3/uL (1.6-8.6) Lymphocytes # (Auto) 2.0 10 ^3/uL (0.4-5.4) Monocytes # (Auto) 0.7 10 ^3/uL (0-1.3) Eosinophils # (Auto) 0.2 10 ^3/uL (0-0.8) Basophils # (Auto) 0 10 ^3/uL (0-0.2) Nucleated Red Blood Cells 0.1 % Sodium Level 139 mmol/L (136-145) Potassium Level 4.0 mmol/L (3.5-5.1) Chloride Level 106 mmol/L (98-107) Carbon Dioxide Level 25 mmol/L (20-31) Anion Gap 8 (5-15) Blood Urea Nitrogen 20 mg/dL (9-23) Creatinine 1.07 mg/dL (0.700-1.30) Glomerular Filtration Rate Calc 84 mL/min (>90) BUN/Creatinine Ratio 18.7 (10.0-20.0) Serum Glucose 132 mg/dL (74-106) Calcium Level 9.2 mg/dL (8.7-10.4) Serum Osmolality 301 mOsm/kg (278-298) Total Bilirubin 0.5 mg/dL (0.2-1.0) Aspartate Amino Transferase (AST) 14 U/L (13-40) Alanine Aminotransferase (ALT) 19 U/L (7-40) Alkaline Phosphatase 59 U/L (46-116) Total Protein 6.1 g/dL (5.7-8.2) Albumin 3.8 g/dL (3.2-4.8) Random Vancomycin Level 16.8 ug/mL (5-10) Prothrombin Time 10.5 sec (9.3-11.8) Prothrombin Time INR 0.99 (0.9-1.15) Activated Partial Thromboplast Time 28.9 SEC (24.5-34.5) Hemoglobin A1c 10.6 % A1C (<5.7) Lactic Acid Level 1.2 mmol/L (0.4-2.0) Phosphorus Level 3.3 mg/dL (2.4-5.1) Magnesium Level 1.3 mg/dL (1.6-2.6) Triglycerides Level 103 mg/dL (< 150) Cholesterol Level 156 mg/dL (< 200) LDL Cholesterol 92 mg/dL (< 100) HDL Cholesterol 45 mg/dL (40-59) Vitamin B12 Level 437 pg/mL (211-911) Vitamin D 25-Hydroxy 21.5 ng/mL (30.0-100) Thyroid Stimulating Hormone (TSH) 1.15 uIU/mL (0.55-4.78) Test 07/05/24 21:14 07/05/24 16:30 Urine Color Light-yellow (Yellow) Urine Clarity Clear (Clear) Urine pH 5.5 (5.0-9.0) Urine Specific [place] 1.014 (1.001-1.035) Urine Protein 2+ (Negative) Urine Ketones Negative (Negative) Urine Blood Trace /uL (Negative) Urine Nitrite Negative (Negative) Urine Bilirubin Negative (Negative) Urine Urobilinogen Normal mg/dL (Negative) Urine Leukocyte Esterase Negative /uL (Negative) Urine RBC 1 /hpf (0 - 3) Urine Microscopic WBC 1 /HPF (0-3) Urine Squamous Epithelial Cells Few /hpf (<5) Urine Amorphous Crystals Few /hpf (None Seen) Urine Bacteria None seen /hpf (None Seen) Urine Glucose 4+ mg/dL (Normal) Urine Opiates Screen Neg (NEGATIVE) Urine Fentanyl Screen Neg (NEGATIVE) Urine Barbiturates Screen Neg (NEGATIVE) Urine Phencyclidine Screen Neg (NEGATIVE) Urine Amphetamines Screen Neg (NEGATIVE) Urine Benzodiazepines Screen Neg (NEGATIVE) Urine Cocaine Screen Neg (NEGATIVE) Urine Cannabinoids Screen Neg (NEGATIVE) Erythrocyte Sedimentation Rate 18 mm/hr (0-20) C-Reactive Protein High Sensitivity 0.77 mg/dL (<1.0) B-Type Natriuretic Peptide 55.70 pg/mL (0-100) Beta-Hydroxybutyric Acid 0.084 mmol/L (< 0.4) Other Laboratory Tests 07/07/24 07:46 Brief Hx & Hospital Course: Martín CONCEPCION 49-year-old male patient who presents to ED with chief complaint of foot pain and nonhealing wound on lateral aspect of left foot for the past 4- 3 months associated with chills, with increase of excruciating pain which prompted his visit to the ED. during ED stay he was diagnosed with fever (100.8 F), leukocytosis and presented increased lactic acid. Denies chest pain, dyspnea, palpitation, syncope, nausea, vomiting, diarrhea, constipation, abdominal pain, bleeding, recent travel, sick contacts and motor or sensory deficits. 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 Family history: Diabetes, hypertension in parents. Social history: Lives in [place] alone (next of kin would be daughter who lives in [place]). Currently vapes and smokes marijuana ex tobacco abuse ([id number] pack-year history) quit tobacco for 10 years in. He drinks alcohol3 times a week and each time he drinks he drinks approximately six beers. Ex methamphetamine abuse, quit four years ago. Denies current tobacco and other drug abuse Allergies: Denies Home medication: Metformin 850 mg p.o. b.i.d., gabapentin 800 mg p.o. daily, lisinopril 20 mg p.o. daily, metoprolol 50 mg p.o. daily, amlodipine 10 mg p.o. daily, atorvastatin 10 mg p.o. daily, vitamin-D, (he was given hydrochlorothiazide but he did not take it) Hospital course: Patient was given IV antibiotic with Zosyn and vancomycin, podiatry consultation was done, as per podiatry no need for MRI, continue with IV antibiotic, if patient is hemodynamically stable, no fever, no white count, no tachycardia, patient can be discharged home with oral antibiotic. Therefore patient has been discharged home with oral antibiotic Augmentin and doxycycline for seven days. Advised to follow with primary care physician and podiatry in clinic. Patient agreed with the discharge plan and discharged home. 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 Patient was counseled about treatment plan, medications, possible side effects, patientverbalized understanding. All questions were answered to the best of my ability. 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
[2024-07-13] MEDS ORDERED: APIXABAN 5 MG TAB PO SCH (22:00)
== END 2024-07-07 12:30 | disposition home or self-care (01) | DRG 720 ==
LOC: ER 15:44 → OVERFLOW 22:21 → TELE-WESTW 07-06 12:41 → WEST WING 07-07 06:47
PROVIDERS: ADMIT Internal Medicine; ATTEND Internal Medicine
DX: A41.9 Sepsis, unspecified organism (principal); N17.0 Acute kidney failure with tubular necrosis; I82.432 Acute embolism and thrombosis of left popliteal vein; E11.621 Type 2 diabetes mellitus with foot ulcer; L03.116 Cellulitis of left lower limb; I10 Essential (primary) hypertension; E55.9 Vitamin D deficiency, unspecified; Z82.49 Family history of ischemic heart disease and other diseases of the circulatory system; E11.65 Type 2 diabetes mellitus with hyperglycemia; Z80.42 Family history of malignant neoplasm of prostate; Z83.3 Family history of diabetes mellitus; Z79.899 Other long term (current) drug therapy; Z79.84 Long term (current) use of oral hypoglycemic drugs
CPT/HCPCS: 36415; 71045; 73630; 80048; 80053; 80061; 80202; 80307; 81001; 82010; 82306; 82607; 82962; 83036; 83605; 83735; 83880; 83930; 84100; 84443; 85025; 85610; 85652; 85730; 86141; 87040; 87077; 87086; 87186; 87205; 93306; 93926; 93971; 96365; 96375; 99291; G0378; J1815; J2543